=== PATIENT | male | born 1945 | race Caucasian/White ===

== ENCOUNTER 2023-08-10 13:20 | Inpatient (IN) | payer MEDICARE ==
[2023-08-10] MEDS ORDERED: ALBUTEROL NEBULIZED 2.5 MG/3 ML INHALATION STA (14:04)
[2023-08-10] MEDS ORDERED: IPRATROPIUM 0.5 MG/2.5 ML NEBU INHALATION STA (14:04)
[2023-08-10] MEDS ORDERED: methylPREDNISolone SOD SUCCI 125 MG/2 ML VIAL IV STA (14:04)
[2023-08-10] MEDS ORDERED: SODIUM CHLORIDE 0.9% 1,000 ML IV STA (14:04)
--- NOTE | 2023-08-10 14:13 | ED ---
General Adult HPI - General Chief complaint: Weakness Stated complaint: sob lack of sleep Time Seen by Provider: 08/10/23 13:55 Source: patient, RN notes reviewed, old records reviewed Mode of arrival: wheelchair Limitations: no limitations - History of Present Illness Initial comments: This is a 78-year-old male who presents to the emergency department complaining of weakness and difficulty breathing over the last 2 weeks. Patient does have a history of atrial fibrillation leukemia and 1 cardiac stent. Patient did have a history of smoking but hasn't smoked in years. Patient states she's just feeling more more fatigued any slightly very difficult to catch his breath particularly when he is lying flat. Patient states she has not passed had a thoracentesis it was approximately 6-8 months ago. Patient denies any recent fever chills or cough. Patient denies any chest pain. Patient denies any headache patient denies numbness weakness. Patient denies any lightheadedness or dizziness. Patient denies any calf tenderness. Patient denies any swelling to the legs. - Related Data Allergies Allergy/AdvReac Type Severity Reaction Status Date / Time No Known Allergies Allergy Verified 08/10/23 13:52 Review of Systems ROS Statement: Those systems with pertinent positive or pertinent negative responses have been documented in the HPI. ROS Other: All systems not noted in ROS Statement are negative. Past Medical History Past Medical History: Atrial Fibrillation, Cancer, Diabetes Mellitus, Hypertension Additional Past Medical History / Comment(s): leukemia- 2017 History of Any Multi-Drug Resistant Organisms: None Reported Past Surgical History: No Surgical Hx Reported Past Psychological History: No Psychological Hx Reported Smoking Status: Former smoker Past Alcohol Use History: Occasional Past Drug Use History: None Reported General Exam - General Exam Comments Initial Comments: GENERAL: Patient is well-developed and well-nourished. Patient is nontoxic and well- hydrated and is in moderate distress. ENT: Neck is soft and supple. No significant lymphadenopathy is noted. Oropharynx is clear. Moist mucous membranes. Neck has full range of motion without eliciting any pain. EYES: The sclera were anicteric and conjunctiva were pink and moist. Extraocular movements were intact and pupils were equal round and reactive to light. Eyelids were unremarkable. PULMONARY: Diminished breath sounds particularly on the right CARDIOVASCULAR: There is a regular rate and rhythm without any murmurs gallops or rubs. ABDOMEN: Soft and nontender with normal bowel sounds. SKIN: Skin is clear with no lesions or rashes and otherwise unremarkable. NEUROLOGIC: Patient is alert and oriented x3. Cranial nerves II through XII are grossly intact. Motor and sensory are also intact. Normal speech, volume and content. Symmetrical smile. MUSCULOSKELETAL: Normal extremities with adequate strength and full range of motion. No lower extremity swelling or edema. No calf tenderness. LYMPHATICS: No significant lymphadenopathy is noted PSYCHIATRIC: Normal psychiatric evaluation. Limitations: no limitations Course Vital Signs 08/10/23 08/10/23 08/10/23 13:44 14:04 14:13 Temperature 98.4 F Pulse Rate 93 98 94 Pulse Rate [ Professional Housing Consultant ] Respiratory 15 20 Rate Blood Pressure 96/58 100/60 O2 Sat by Pulse 77 L 60 L Oximetry 08/10/23 08/10/23 08/10/23 14:15 14:25 14:28 Temperature Pulse Rate 98 Pulse Rate [ 92 Professional Housing Consultant ] Respiratory 20 20 Rate Blood Pressure 91/62 O2 Sat by Pulse 90 L Oximetry 08/10/23 08/10/23 08/10/23 14:40 15:00 16:00 Temperature Pulse Rate 95 94 98 Pulse Rate [ Professional Housing Consultant ] Respiratory 20 24 Rate Blood Pressure 115/79 115/75 O2 Sat by Pulse 90 L 90 L Oximetry 08/10/23 17:00 Temperature Pulse Rate 110 H Pulse Rate [ Professional Housing Consultant ] Respiratory 20 Rate Blood Pressure 117/83 O2 Sat by Pulse 92 L Oximetry Medical Decision Making - Medical Decision Making EKG is interpreted by myself. EKG shows atrial fibrillation at 93 bpm QRS is 124 QT interval 370 QTC is 422. Patient's EKG shows occasional PVC. Patient's EKG shows no ST segment elevation or depression. Was pt. sent in by a medical professional or institution (, PA, HUMAN RESOURCES ASSISTANT MANAGER, urgent care, hospital, or alf...) When possible be specific @ -No Did you speak to anyone other than the patient for history (EMS, parent, family, police, friend...)? What history was obtained from this source @ -No Did you review nursing and triage notes (agree or disagree)? Why? @ -I reviewed and agree with nursing and triage notes Were old charts reviewed (outside hosp., previous admission, EMS record, old EKG, old radiological studies, urgent care reports/EKG's, alf records)? Report findings @ -No old charts were reviewed Differential Diagnosis (chest pain, altered mental status, abdominal pain women, abdominal pain men, vaginal bleeding, weakness, fever, dyspnea, syncope, headache, dizziness, GI bleed, back pain, seizure, CVA, palpatations, mental health, musculoskeletal)? @ -Differential Dyspnea: Coronary syndrome, arrhythmia, tamponade, asthma, COPD, pulmonary embolism, pneumonia, pneumothorax, pulmonary effusion, anaphylaxis, diabetic ketoacidosis, flailed chest, pulmonary contusion, diaphragmatic rupture, anemia, neuromuscular, this is not meant to be an all-inclusive list. EKG interpreted by me (3pts min.). @ -As above X-rays interpreted by me (1pt min.). @ -Chest x-ray shows right-sided pleural effusion with pulmonary edema CT interpreted by me (1pt min.). @ -CT of the chest shows no PE but does show significant right-sided pleural effusion and a small left-sided pleural fusion as well as pulmonary edema U/S interpreted by me (1pt. min.). @ -None done What testing was considered but not performed or refused? (CT, X-rays, U/S, lab s)? Why? @ -None What meds were considered but not given or refused? Why? @ -None Did you discuss the management of the patient with other professionals (professionals i.e. , PA, HUMAN RESOURCES ASSISTANT MANAGER, lab, RT, psych nurse, social worker aide, cmo & president, teacher, chief science officer, insurance case manager)? Give summary @ -I spoke with the [facility] hospitalist and they agreed to admit the patient Was smoking cessation discussed for >3mins.? @ -No Was critical care preformed (if so, how long)? @ -35 Minutes Were there social determinants of health that impacted care today? How? (Homelessness, low income, unemployed, alcoholism, drug addiction, transportation, low edu. Level, literacy, decrease access to med. care, retirement, rehab)? @ -No Was there de-escalation of care discussed even if they declined (Discuss DNR or withdrawal of care, Hospice)? DNR status @ -No What co-morbidities impacted this encounter? (DM, HTN, Smoking, COPD, CAD, Cancer, CVA, ARF, Chemo, Hep., AIDS, mental health diagnosis, sleep apnea, morbid obesity)? @ -None Was patient admitted / discharged? Hospital course, mention meds given and route, prescriptions, significant lab abnormalities, going to OR and other pertinent info. @ -Patient's x-ray and CAT scan verified that he had a large right-sided pleural effusion probably needs a thoracentesis pulmonary will be consulted. Patient also had pulmonary edema and will be given Lasix and in the emergency department. Undiagnosed new problem with uncertain prognosis? @ -No Drug Therapy requiring intensive monitoring for toxicity (Heparin, Nitro, Insulin, Cardizem)? @ -No Were any procedures done? @ -No Diagnosis/symptom? @ -Pleural effusion Acute, or Chronic, or Acute on Chronic? @ -Acute Uncomplicated (without systemic symptoms) or Complicated (systemic symptoms)? @ -Complicated Side effects of treatment? @ -No Exacerbation, Progression, or Severe Exacerbation? @ -No Poses a threat to life or bodily function? How? (Chest pain, [place], [place], pneumonia, PE, COPD, DKA, ARF, appy, cholecystitis, CVA, Diverticulitis, Homicidal, Suicidal, threat to staff... and all critical care pts) @ -Yes this can cause hypoxia and end organ dysfunction Diagnosis/symptom? @ -Pulmonary edema Acute, or Chronic, or Acute on Chronic? @ -Acute Uncomplicated (without systemic symptoms) or Complicated (systemic symptoms)? @ -Complicated Side effects of treatment? @ -none Exacerbation, Progression, or Severe Exacerbation] @ -no Poses a threat to life or bodily function? @ -Hypoxia and end organ dysfunction - Lab Data Result diagrams: 08/10/23 14:04 08/10/23 14:04 Lab Results 08/10/23 08/10/23 08/10/23 Range/Units 14:04 14:04 14:04 WBC 206.7 H* (3.8-10.6) k/uL RBC 4.46 (4.30-5.90) m/uL Hgb 12.0 L (13.0-17.5) gm/dL Hct 40.1 (39.0-53.0) % MCV 89.9 (80.0-100.0) fL MCH 27.0 (25.0-35.0) pg MCHC 30.0 L (31.0-37.0) g/dL RDW 20.5 H (11.5-15.5) % Plt Count 186 (150-450) k/uL MPV 8.2 Neutrophils % (Manual) 4 % Lymphocytes % (Manual) 93 % Monocytes % (Manual) 3 % Eosinophils % (Manual) 1 % Neutrophils # (Manual) 8.27 H (1.3-7.7) k/uL Lymphocytes # (Manual) 192.23 H (1.0-4.8) k/uL Monocytes # (Manual) 6.20 H (0-1.0) k/uL Eosinophils # (Manual) 2.07 H (0-0.7) k/uL Nucleated RBCs 0 (0-0) /100 WBC Manual Slide Review Performed Hypochromasia Marked Anisocytosis Moderate PT 11.9 (10.0-12.5) sec INR 1.1 (<1.2) APTT 23.5 (22.0-30.0) sec D-Dimer 1.15 H (<0.60) mg/L FEU Sodium 139 (137-145) mmol/L Potassium 5.7 H (3.5-5.1) mmol/L Chloride 99 (98-107) mmol/L Carbon Dioxide 29 (22-30) mmol/L Anion Gap 11 mmol/L BUN 23 H (9-20) mg/dL Creatinine 0.82 (0.66-1.25) mg/dL Est GFR (CKD-EPI)AfAm >90 (>60 ml/min/1.73 sqM) Est GFR (CKD-EPI)NonAf 85 (>60 ml/min/1.73 sqM) Glucose 373 H (74-99) mg/dL Plasma Lactic Acid [place] (0.7-2.0) mmol/L Calcium 9.4 (8.4-10.2) mg/dL Magnesium 1.9 (1.6-2.3) mg/dL Total Bilirubin 0.5 (0.2-1.3) mg/dL AST 23 (17-59) U/L ALT 13 (4-49) U/L Alkaline Phosphatase 141 H (38-126) U/L Troponin I (0.000-0.034) ng/mL NT-Pro-B Natriuret Pep 1650 pg/mL Total Protein 6.2 L (6.3-8.2) g/dL Albumin 4.0 (3.5-5.0) g/dL 01/08/24 01/08/24 Range/Units 14:04 14:04 WBC (3.8-10.6) k/uL RBC (4.30-5.90) m/uL Hgb (13.0-17.5) gm/dL Hct (39.0-53.0) % MCV (80.0-100.0) fL MCH (25.0-35.0) pg MCHC (31.0-37.0) g/dL RDW (11.5-15.5) % Plt Count (150-450) k/uL MPV Neutrophils % (Manual) % Lymphocytes % (Manual) % Monocytes % (Manual) % Eosinophils % (Manual) % Neutrophils # (Manual) (1.3-7.7) k/uL Lymphocytes # (Manual) (1.0-4.8) k/uL Monocytes # (Manual) (0-1.0) k/uL Eosinophils # (Manual) (0-0.7) k/uL Nucleated RBCs (0-0) /100 WBC Manual Slide Review Hypochromasia Anisocytosis PT (10.0-12.5) sec INR (<1.2) APTT (22.0-30.0) sec D-Dimer (<0.60) mg/L FEU Sodium (137-145) mmol/L Potassium (3.5-5.1) mmol/L Chloride (98-107) mmol/L Carbon Dioxide (22-30) mmol/L Anion Gap mmol/L BUN (9-20) mg/dL Creatinine (0.66-1.25) mg/dL Est GFR (CKD-EPI)AfAm (>60 ml/min/1.73 sqM) Est GFR (CKD-EPI)NonAf (>60 ml/min/1.73 sqM) Glucose (74-99) mg/dL Plasma Lactic Acid [place] 1.7 (0.7-2.0) mmol/L Calcium (8.4-10.2) mg/dL Magnesium (1.6-2.3) mg/dL Total Bilirubin (0.2-1.3) mg/dL AST (17-59) U/L ALT (4-49) U/L Alkaline Phosphatase (38-126) U/L Troponin I <0.012 (0.000-0.034) ng/mL NT-Pro-B Natriuret Pep pg/mL Total Protein (6.3-8.2) g/dL Albumin (3.5-5.0) g/dL Critical Care Time Critical Care Time: Yes Total Critical Care Time: 35 Disposition Clinical Impression: Pleural effusion, Pulmonary edema, History of leukemia Disposition: ADMITTED IP TO THIS HOSP Referrals: Nonstaff,Physician [Primary Care Provider] - 1-2 days Time of Disposition: 17:25
[2023-08-10 14:37] LABS: ALT 13 U/L (4-49); AST 23 U/L (17-59); African American GFR (CKD) >90 (>60 ml/min/1.73 sqM); Alkaline Phosphatase 141 U/L (38-126); Anion Gap 11 mmol/L; Blood Urea Nitrogen 23 mg/dL (9-20); Calcium 9.4 mg/dL (8.4-10.2); Carbon Dioxide 29 mmol/L (22-30); Chloride 99 mmol/L (98-107); Glucose 373 mg/dL (74-99); Magnesium 1.9 mg/dL (1.6-2.3); Non-African American GFR(CKD) 85 (>60 ml/min/1.73 sqM); Potassium 5.7 mmol/L (3.5-5.1); Sodium 139 mmol/L (137-145); Total Bilirubin 0.5 mg/dL (0.2-1.3); Total Protein 6.2 g/dL (6.3-8.2)
[2023-08-10 14:39] LABS: Anisocytosis Moderate; HCT 40.1 % (39.0-53.0); Hypochromasia Marked; MCV 89.9 fL (80.0-100.0); Mean Platelet Volume 8.2; Platelet Count 186 k/uL (150-450); RBC 4.46 m/uL (4.30-5.90); RDW 20.5 % (11.5-15.5)
[2023-08-10 14:40] LABS: INR 1.1 (<1.2); Partial Thromboplastin Time 23.5 sec (22.0-30.0); Prothrombin Time 11.9 sec (10.0-12.5)
[2023-08-10 14:45] LABS: NT-Pro-B-Type Natriuretic Pept 1650 pg/mL
[2023-08-10 14:47] LABS: WBC 206.7 k/uL (3.8-10.6)
--- NOTE | 2023-08-10 15:07 | XR ---
EXAMINATION TYPE: XR chest 2V DATE OF EXAM: 08/10/2023 COMPARISON: 06/08/2015 HISTORY: Difficulty breathing TECHNIQUE: 2 view chest FINDINGS: Heart size is normal. Pulmonary vasculature is prominent. Scattered infiltrates are present in the bilateral lung [place]. Moderate right pleural effusion may be present. IMPRESSION: 1. Moderate right pleural effusion. 2. Perihilar infiltrates. Correlate for atelectasis or pneumonia. Follow-up to clearing is oscar balbuena
[2023-08-10 15:26] LABS: Eosinophils # (M) 2.07 k/uL (0-0.7); Lymphocytes # (M) 192.23 k/uL (1.0-4.8); Neutrophils # (M) 8.27 k/uL (1.3-7.7); Neutrophils % (M) 4 %; Nucleated Red Blood Cells 0 /100 WBC (0-0); Total Cells Counted 200
--- NOTE | 2023-08-10 17:17 | CT ---
CT CHEST FOR PULMONARY EMBOLISM. EXAMINATION TYPE: CT chest angio for PE DATE OF EXAM: 08/10/2023 INDICATION: Elevated d-dimer AND SOB CT DLP: 811.7 mGycm, Automated exposure control for dose reduction was used. CONTRAST: Patient injected with 100ML mL of Isovue 300. COMPARISON: TECHNIQUE: CT of the chest is performed on a spiral scan at 2 mm thick sections. Study is performed with intravenous contrast timed for evaluation for pulmonary embolism. This will limit additional po rtions of the evaluation. 3-D MIP images reconstructed by the technologist are reviewed on the compu ter in the coronal and sagittal planes. FINDINGS: No persistent filling defects are evident to suggest an acute pulmonary embolism. No mediastinal or hilar adenopathy enlarged by CT criteria is evident. The ascending aorta diameter at the level of the main pulmonary artery is 4.3 cm. The main pulmonary artery diameter at the bifur cation is 3.4 cm. There is a moderate right pleural effusion. Compressive atelectasis of the right base. Minimal left p leural effusion is present. Limited CT section through the upper abdomen are unremarkable. IMPRESSION: 1. No acute pulmonary embolism. 2. Moderate right and minimal left pleural effusions. 3. Ascending thoracic aortic aneurysm of 4.3 cm
[2023-08-10] MEDS: FUROSEMIDE 10 MG/ML 4 ML VIAL IV SCH (17:35)
[2023-08-10] MEDS ORDERED: DEXTROSE 50% SYRINGE 50 ML IVP PRN ×2 (23:42)
[2023-08-10] MEDS ORDERED: ALBUTEROL NEBULIZED 2.5 MG/3 ML INHALATION PRN (23:45)
[2023-08-10] MEDS ORDERED: carvediloL 6.25 MG TAB PO STA (23:46)
[2023-08-10] MEDS ORDERED: AZITHROMYCIN 500 MG in SODIUM CHLORIDE 0.9% 250 ML IVPB STA (23:51)
[2023-08-11] MEDS ORDERED: LORazepam 2 MG/ML INJ IV STA (03:45)
[2023-08-11 04:08] LABS: ABG Base Excess 2.2 mmol/L; ABG HCO3 28 mmol/L (21-25); ABG PCO2 54 mmHg (35-45); ABG PH 7.33 (7.35-7.45); ABG TCO2 30 mmol/L (19-24); Allen Test Performed? Yes
[2023-08-11 04:17] LABS: ABG PO2 47 mmHg (83-108)
[2023-08-11] MEDS ORDERED: HALOPERIDOL LACTATE 5 MG/ML 1 ML VIAL IM STA (04:24)
[2023-08-11] MEDS: FUROSEMIDE 10 MG/ML 4 ML VIAL IV SCH ×3 (04:44→16:37)
[2023-08-11 06:11] LABS: Glucose,Whole Blood 542 mg/dL (70-110)
[2023-08-11] MEDS: INSULIN ASPART (NovoLOG) 100 UNIT/ML VIAL SQ SCH ×3 (06:14→18:30)
[2023-08-11] MEDS ORDERED: FUROSEMIDE 10 MG/ML 10 ML VIAL IV STA (06:28)
[2023-08-11] MEDS ORDERED: INSULIN ASPART (NovoLOG) 100 UNIT/ML VIAL SQ ONE (06:40)
[2023-08-11] MEDS: DEXMEDETOMIDINE/0.9% NACL(PMX) 400 MCG in EMPTY BAG 1 BAG IV SCH ×4 (06:55→21:54)
--- NOTE | 2023-08-11 07:04 | P.CNPUL ---
History of Present Illness Consult date: 08/11/23 Requesting physician: Shimon Fitzpatrick Reason for consult: dyspnea Chief complaint: Shortness of breath with exertion History of present illness: I am seeing this patient in new consultation today 08/11/2023 in the emergency room, he is currently in room 27. Patient is a 78-year-old white male with past medical history significant for atrial fibrillation, hypertension, diabetes, CLL, and is a former tobacco smoker. His PCP is a Dr. Miles out of [place]. Patient presented to emergency room yesterday afternoon, chiefly for shortness of breath. This is worse on exertion. He's had increased lower extremity swelling and abdominal firmness. Patient admits to persistent ongoing cough, mo stly nonproductive. This is been ongoing since he was treated for infleunza in March at an outside facility. Denies fevers, chest pain, hemoptysis. Chest x- ray shows cardiomegaly, pulmonary vascular congestion, and likely bilateral pleural effusions. Greater on the right. Underlying infectious process is not excluded. D-dimer was elevated at 1.5. Follow-up Chest CTA on arrival was negative for pulmonary embolism. There is moderate right and minimal left pleural effusion. NT proBNP 1650. CBC on arrival: WBC count 206.7, hemoglobin 12, hematocrit 41, platelets 186. CMP sodium 139, potassium 5.7, chloride 99, serum bicarb 29, BUN 23, creatinine 0.82, glucose 373. Troponins less than 0.012. EKG on arrival shows atrial fibrillation with rapid ventricular response, right bundle branch block. No obvious acute ischemic changes. Patient was originally placed on high flow oxygen. ABGs on 10 L high flow cannula pO2 of 47, pCO2 of 54, pH of 7.33. Patient was placed on BiPAP. Patient is currently sitting up in bed, on BiPAP with settings 16/8 and FiO2 100%. He is anxious. He's been given doses of Ativan by the ER physician. I also gave him a one-time dose of Haldol. Despite this, he continues to try and get out of bed and take off the BiPAP. Patient will require transfer to intensive care unit. We'll start this patient on Precedex. Review of Systems REVIEW OF SYSTEMS: CONSTITUTIONAL: Denies any recent significant weight loss or weight gain. EYES: Denies change in vision. EARS, NOSE, MOUTH, THROAT: Denies headaches, denies sore throat. CARDIOVASCULAR: Denies chest pain, palpitations or syncopal episodes. Admits in creased lower extremity swelling. RESPIRATORY: See HPI GASTROINTESTINAL: Denies change in appetite, abdominal pain, nausea and vomiting, or diarrhea GENITOURINARY: Denies hematuria, denies infections. MUSKULOSKELETAL: Denies pain, denies swelling. INTEGUMENTARY: Denies rash, denies eczema. NEUROLOGICAL: Denies recent memory loss, no recent seizure activity. PSYCHIATRIC: Denies anxiety, denies depression. HEMATOLOGIC/LYMPHATIC: Denies anemia, denies enlarged lymph node Past Medical History Past Medical History: Atrial Fibrillation, Cancer, Diabetes Mellitus, Hypertension Additional Past Medical History / Comment(s): leukemia- 2017 History of Any Multi-Drug Resistant Organisms: None Reported Past Surgical History: No Surgical Hx Reported Past Psychological History: No Psychological Hx Reported Smoking Status: Former smoker Past Alcohol Use History: Occasional Past Drug Use History: None Reported Medications and Allergies Home Medications Medication Instructions Recorded Confirmed Type Albuterol Sulfate [Albuterol 2 puff PO RT-Q6H PRN 08/10/23 08/10/23 History Sulfate Hfa] Aspirin EC [Ecotrin Low Dose] 81 mg PO DAILY 08/10/23 08/10/23 History Furosemide [Lasix] 20 mg PO DAILY 08/10/23 08/10/23 History Insulin Regular, Human [NovoLIN R] See Protocol SQ ACHS 08/10/23 08/10/23 History Rivaroxaban [Xarelto] 20 mg PO DIRECTED 08/10/23 08/10/23 History carvediloL [Coreg] 6.25 mg PO BID 08/10/23 08/10/23 History dilTIAZem HCL [Cardizem CD] 120 mg PO DAILY 08/10/23 08/10/23 History lisinopriL [Prinivil] 20 mg PO DAILY 08/10/23 08/10/23 History metFORMIN HCL 1,000 mg PO BID-W/MEALS 08/10/23 08/10/23 History Allergies Allergy/AdvReac Type Severity Reaction Status Date / Time No Known Allergies Allergy Verified 08/10/23 18:10 Physical Exam Vitals: Vital Signs Temp Pulse Pulse Resp BP Pulse Ox FiO2 08/11/23 04:41 100 08/11/23 04:35 120 H 28 H 135/91 93 L 08/11/23 04:32 100 08/11/23 04:25 100 08/11/23 04:18 100 08/11/23 03:00 70 L 08/10/23 23:59 98.1 F 130 H 22 126/79 93 L 08/10/23 22:46 111 H 20 119/79 95 08/10/23 22:40 112 H 20 92 L 08/10/23 21:06 112 H 20 112/85 91 L 08/10/23 20:40 118 H 20 126/91 95 08/10/23 20:25 109 H 21 97 08/10/23 18:00 90 24 124/85 94 L 08/10/23 17:00 110 H 20 117/83 92 L 08/10/23 16:00 98 24 115/75 90 L 08/10/23 15:00 94 20 115/79 90 L 08/10/23 14:40 95 08/10/23 14:28 92 08/10/23 14:25 20 08/10/23 14:15 98 20 91/62 90 L 08/10/23 14:13 94 08/10/23 14:04 98 20 100/60 60 L 08/10/23 13:44 98.4 F 93 15 96/58 77 L Intake and Output 08/10/23 08/10/23 08/11/23 14:59 22:59 06:59 Output Total 350 500 Balance -350 -500 Output: Urine 350 500 Other: # Voids 1 1 Weight 104.326 kg GENERAL EXAM: Alert, 78-year-old white male , anxious and in some moderate amount of distress on BiPAP. He is trying to get out of bed and pull off the BiPAP mask. HEAD: Normocephalic and atraumatic EYES: Normal reaction of pupils, equal size. NOSE: Clear with pink turbinates. THROAT: No erythema or exudates. NECK: No masses, no JVD. CHEST: No chest wall deformity. LUNGS: Equal air entry with diffuse rhonchi and bibasilar dullness. On BiPAP with settings 16/8 and FiO2 100%. Achieving tidal volumes around 600, respiratory rate is in the high 20s.. CVS: S1 and S2 normal with no audible murmur, regular rhythm. No extra heart sounds ABDOMEN: No hepatosplenomegaly, active bowel sounds, no guarding or rigidity. SPINE: No scoliosis or deformity SKIN: No rashes CENTRAL NERVOUS SYSTEM: No focal deficits, tone is normal in all 4 extremities. EXTREMITIES: Moderate bilateral nonpitting lower extremity edema. Legs are wrapped. Patient has venous stasis ulcers. No clubbing, or cyanosis. Peripheral pulses are intact. Results - Laboratory Findings CBC and BMP: 08/10/23 14:04 08/10/23 14:04 ABG ABG pH 7.33 (7.35-7.45) L 08/11/23 04:06 ABG pCO2 54 mmHg (35-45) H 08/11/23 04:06 ABG pO2 47 mmHg (83-108) L* 08/11/23 04:06 ABG O2 Saturation 80.0 % (94-97) L 08/11/23 04:06 PT/INR, D-dimer PT 11.9 sec (10.0-12.5) 08/10/23 14:04 INR 1.1 (<1.2) 08/10/23 14:04 D-Dimer 1.15 mg/L FEU (<0.60) H 08/10/23 14:04 Abnormal lab findings: Abnormal Labs 08/10/23 08/10/23 08/10/23 14:04 14:04 14:04 WBC 206.7 H* Hgb 12.0 L MCHC 30.0 L RDW 20.5 H Neutrophils # (Manual) 8.27 H Lymphocytes # (Manual) 192.23 H Monocytes # (Manual) 6.20 H Eosinophils # (Manual) 2.07 H D-Dimer 1.15 H ABG pH ABG pCO2 ABG pO2 ABG HCO3 ABG Total CO2 ABG O2 Saturation Potassium 5.7 H BUN 23 H Glucose 373 H POC Glucose (mg/dL) Alkaline Phosphatase 141 H Total Protein 6.2 L 08/11/23 08/11/23 04:06 06:10 WBC Hgb MCHC RDW Neutrophils # (Manual) Lymphocytes # (Manual) Monocytes # (Manual) Eosinophils # (Manual) D-Dimer ABG pH 7.33 L ABG pCO2 54 H ABG pO2 47 L* ABG HCO3 28 H ABG Total CO2 30 H ABG O2 Saturation 80.0 L Potassium BUN Glucose POC Glucose (mg/dL) 542 H Alkaline Phosphatase Total Protein - Diagnostic Findings Chest x-ray: image reviewed CT scan - chest: image reviewed Assessment and Plan Assessment: Acute hypoxemic and hypercapnic respiratory failure, currently on BiPAP, likely secondary to CHF exacerbation, unknown type. Underlying pneumonia is not exclud ed. Chest x-ray on arrival shows. Cardiomegaly, pulmonary vascular congestion, and bilateral pleural effusions, right greater than left. Paroxysmal atrial fibrillation with rapid ventricular rate Metabolic encephalopathy, possibly related to hypoxia Elevated d-dimer, chest CTA did not show any pulmonary emboli. Chronic lymphocytic leukemia Diabetes mellitus, type II, insulin-dependent History of hypertension Remote former smoker Plan: Patient's medications, labs and imaging reviewed. Continue BiPAP support with current settings. Patient is anxious and sliding BiPAP. We'll start the patient on Precedex infusion, will require ICU transfer. Continue with IV Lasix 40 mg twice a day. Given additional dose of Lasix 60 mg once now. Obtain echocardiogram. Obtain chest ultrasound markings, for possible thoracentesis. Patient not currently on any anticoagulants. Patient empirically covered with antibiotics including ceftriaxone and azithromycin. Check procalcitonin level. Blood cultures pending. Rule out COVID, Influenza, RSV. Patient will be best monitored in the intensive care unit for now. We will continue to follow, and further recommendations are forthcoming. I have personally seen and examined the patient, performed the documentation and the assessment and plan as written. Number of minutes spent on the visit:20 Time with Patient: Greater than 30
[2023-08-11 07:59] LABS: Glucose,Whole Blood 551 mg/dL (70-110)
--- NOTE | 2023-08-11 08:49 | XR ---
EXAM: XR Chest, 1 View CLINICAL HISTORY: dyspnea TECHNIQUE: Frontal view of the chest. COMPARISON: Chest CT performed 2 hours 17 minutes report this exam. FINDINGS/IMPRESSION: Essentially unchanged study, allowing for differences technique. Please refer to the prior report.
[2023-08-11 09:08] LABS: ABG Base Excess 3.7 mmol/L; ABG HCO3 30 mmol/L (21-25); ABG Oxygen Saturation 93.4 % (94-97); ABG PCO2 62 mmHg (35-45); ABG PH 7.29 (7.35-7.45); ABG PO2 73 mmHg (83-108); ABG TCO2 32 mmol/L (19-24); Allen Test Performed? Yes
[2023-08-11] MEDS: carvediloL 6.25 MG TAB PO SCH ×2 (09:08→19:40)
[2023-08-11] MEDS: lisinopriL 20 MG TAB PO SCH (09:08)
--- NOTE | 2023-08-11 10:12 | US ---
EXAMINATION TYPE: US chest DATE OF EXAM: 08/11/2023 COMPARISON: NONE CLINICAL INDICATION: Male, 78 years old with history of Bilateral pleural effusions; Patient not cons cious at time of exam. TECHNIQUE: Targeted ultrasound of the posterior lower bilateral hemithoraces EXAM MEASUREMENTS: Right Pleural Effusion pocket size: 3.2 cm Right skin surface to fluid distance: 2.0 cm Left Pleural Effusion pocket size: 1.8 cm Left skin surface to fluid distance: 3.6 cm Right side marked for possible thoracentesis outside the dept. Pulmonologists are able to review the images in the patient?s EMR. Right side marked with patient in LPO IMPRESSIONS: 1. Small bilateral pleural effusions.
--- NOTE | 2023-08-11 10:38 | P.HPIM ---
History of Present Illness This is a pleasant 78 years old male with past medical history of Atrial Fibrillation, Diabetes Mellitus, Hypertension, leukemia- 2017 Patient currently on BiPAP, nonverbal very weak and could not provide i nformation so it was obtained from stop her records. Because of feeling very weak and not able to sleep flat to do because of difficulty breathing. On admission he was found to have a respiratory address and hypoxic and tachycardic, currently was placed on BiPAP. BiPAP setting is 16/8 with FiO2 of 100% and has to be placed or strains. Because of her cell phone staff. Further information is limited Labs reviewed showing leukocytosis of 206, hemoglobin 12, platelet count 186 Mainly he has increasing lymphocytes at 192k, BMP and liver enzymes were unremarkable PH is low at 7.3 PCO2 is elevated 54 and pO2 was low 47 ProBNP is mildly elevated 1650 Troponin is negative Chest x-ray showing worsening right lung opacification involving most of the whole right lung CTA of the chest was negative for pulmonary embolism with large right pleural effusion associated with ascending aorta about 4.3 cm EKG showing A. fib with conduction delay/L Duarte versus right bundle branch block Review of Systems ROS unobtainable: due to mental status Past Medical History Past Medical History: Atrial Fibrillation, Cancer, Diabetes Mellitus, Hypertension Additional Past Medical History / Comment(s): leukemia- 2017 History of Any Multi-Drug Resistant Organisms: None Reported Past Surgical History: No Surgical Hx Reported Past Psychological History: No Psychological Hx Reported Smoking Status: Former smoker Past Alcohol Use History: Occasional Past Drug Use History: None Reported Medications and Allergies Home Medications Medication Instructions Recorded Confirmed Type Albuterol Sulfate [Albuterol 2 puff PO RT-Q6H PRN 08/10/23 08/10/23 History Sulfate Hfa] Aspirin EC [Ecotrin Low Dose] 81 mg PO DAILY 08/10/23 08/10/23 History Furosemide [Lasix] 20 mg PO DAILY 08/10/23 08/10/23 History Insulin Regular, Human [NovoLIN R] See Protocol SQ ACHS 08/10/23 08/10/23 History Rivaroxaban [Xarelto] 20 mg PO DIRECTED 08/10/23 08/10/23 History carvediloL [Coreg] 6.25 mg PO BID 08/10/23 08/10/23 History dilTIAZem HCL [Cardizem CD] 120 mg PO DAILY 08/10/23 08/10/23 History lisinopriL [Prinivil] 20 mg PO DAILY 08/10/23 08/10/23 History metFORMIN HCL 1,000 mg PO BID-W/MEALS 08/10/23 08/10/23 History Allergies Allergy/AdvReac Type Severity Reaction Status Date / Time No Known Allergies Allergy Verified 08/10/23 18:10 Physical Exam Vitals: Vital Signs Temp Pulse Pulse Resp BP Pulse Ox FiO2 08/11/23 08:56 93 L 08/11/23 08:55 112 H 24 125/79 89 L 08/11/23 08:50 86 L 08/11/23 08:30 112 H 18 109/90 94 L 08/11/23 07:55 100 08/11/23 07:25 135 H 28 H 131/88 93 L 08/11/23 07:05 126 H 28 H 138/94 88 L 08/11/23 04:41 100 08/11/23 04:35 120 H 28 H 135/91 93 L 08/11/23 04:32 100 08/11/23 04:25 100 08/11/23 04:18 100 08/11/23 03:00 70 L 08/10/23 23:59 98.1 F 130 H 22 126/79 93 L 08/10/23 22:46 111 H 20 119/79 95 08/10/23 22:40 112 H 20 92 L 08/10/23 21:06 112 H 20 112/85 91 L 08/10/23 21:00 128 H 13 126/91 93 L 08/10/23 20:40 118 H 20 126/91 95 08/10/23 20:30 122/90 91 L 08/10/23 20:25 109 H 21 97 08/10/23 20:00 117/85 93 L 08/10/23 19:30 105 H 119/86 93 L 08/10/23 19:00 113 H 124/85 94 L 08/10/23 18:30 113 H 138/70 86 L 08/10/23 18:00 90 24 115/87 89 L 08/10/23 17:30 97 10 L 117/83 94 L 08/10/23 17:00 95 20 115/83 93 L 08/10/23 16:30 103 H 38 H 115/79 87 L 08/10/23 16:00 100 30 H 113/73 88 L 08/10/23 15:30 95 18 117/76 91 L 08/10/23 15:00 92 22 91/62 93 L 08/10/23 14:40 95 08/10/23 14:30 87 26 H 91/62 92 L 08/10/23 14:28 92 08/10/23 14:25 20 08/10/23 14:15 98 20 91/62 90 L 08/10/23 14:13 94 08/10/23 14:04 98 20 100/60 60 L 08/10/23 14:00 64 L 08/10/23 13:44 98.4 F 93 15 96/58 77 L Intake and Output 08/10/23 08/11/23 08/11/23 22:59 06:59 14:59 Intake Total 20.213 Output Total 350 500 600 Balance -350 500 -579.787 Intake: Intake, IV Titration 20.213 Amount Dexmedetomidine/0.9% NaCl 20.213 (Pmx) 400 mcg In Empty Bag 1 bag @ 0.2 MCG/KG/HR 5.216 mls/hr IV .[id number] [facility] Rx#:[id number] Output: Urine 350 500 600 Uretheral ([place]) 600 Other: # Voids 1 1 -GENERAL: The patient is very weak, on BiPAP, could not provide information HEENT: Pupils are round and equally reacting to light. EOMI. No scleral icterus. No conjunctival pallor. Normocephalic, atraumatic. No pharyngeal erythema. No thyromegaly. CARDIOVASCULAR: S1 and S2 present. No murmurs, rubs, or gallops. -PULMONARY: Chest is clear to auscultation, no wheezing , no crackles. Decreased breath sounds on the right side, tachypneic ABDOMEN: Soft, nontender, nondistended, normoactive bowel sounds. No palpable organomegaly. MUSCULOSKELETAL: No joint swelling or deformity. EXTREMITIES: No cyanosis, clubbing, or pedal edema. NEUROLOGICAL: Gross neurological examination did not reveal any focal deficits. SKIN: No rashes. no petechiae. Results CBC & Chem 7: 08/10/23 14:04 08/10/23 14:04 Labs: Abnormal Lab Results - Last 24 Hours (Table) 08/10/23 08/10/23 08/10/23 Range/Units 14:04 14:04 14:04 WBC 206.7 H* (3.8-10.6) k/uL Hgb 12.0 L (13.0-17.5) gm/dL MCHC 30.0 L (31.0-37.0) g/dL RDW 20.5 H (11.5-15.5) % Neutrophils # (Manual) 8.27 H (1.3-7.7) k/uL Lymphocytes # (Manual) 192.23 H (1.0-4.8) k/uL Monocytes # (Manual) 6.20 H (0-1.0) k/uL Eosinophils # (Manual) 2.07 H (0-0.7) k/uL D-Dimer 1.15 H (<0.60) mg/L FEU ABG pH (7.35-7.45) ABG pCO2 (35-45) mmHg ABG pO2 (83-108) mmHg ABG HCO3 (21-25) mmol/L ABG Total CO2 (19-24) mmol/L ABG O2 Saturation (94-97) % Potassium 5.7 H (3.5-5.1) mmol/L BUN 23 H (9-20) mg/dL Glucose 373 H (74-99) mg/dL POC Glucose (mg/dL) (70-110) mg/dL Alkaline Phosphatase 141 H (38-126) U/L Total Protein 6.2 L (6.3-8.2) g/dL 08/11/23 08/11/23 08/11/23 Range/Units 04:06 06:10 07:58 WBC (3.8-10.6) k/uL Hgb (13.0-17.5) gm/dL MCHC (31.0-37.0) g/dL RDW (11.5-15.5) % Neutrophils # (Manual) (1.3-7.7) k/uL Lymphocytes # (Manual) (1.0-4.8) k/uL Monocytes # (Manual) (0-1.0) k/uL Eosinophils # (Manual) (0-0.7) k/uL D-Dimer (<0.60) mg/L FEU ABG pH 7.33 L (7.35-7.45) ABG pCO2 54 H (35-45) mmHg ABG pO2 47 L* (83-108) mmHg ABG HCO3 28 H (21-25) mmol/L ABG Total CO2 30 H (19-24) mmol/L ABG O2 Saturation 80.0 L (94-97) % Potassium (3.5-5.1) mmol/L BUN (9-20) mg/dL Glucose (74-99) mg/dL POC Glucose (mg/dL) 542 H 551 H (70-110) mg/dL Alkaline Phosphatase (38-126) U/L Total Protein (6.3-8.2) g/dL 08/11/23 Range/Units 09:04 WBC (3.8-10.6) k/uL Hgb (13.0-17.5) gm/dL MCHC (31.0-37.0) g/dL RDW (11.5-15.5) % Neutrophils # (Manual) (1.3-7.7) k/uL Lymphocytes # (Manual) (1.0-4.8) k/uL Monocytes # (Manual) (0-1.0) k/uL Eosinophils # (Manual) (0-0.7) k/uL D-Dimer (<0.60) mg/L FEU ABG pH 7.29 L (7.35-7.45) ABG pCO2 62 H (35-45) mmHg ABG pO2 73 L (83-108) mmHg ABG HCO3 30 H (21-25) mmol/L ABG Total CO2 32 H (19-24) mmol/L ABG O2 Saturation 93.4 L (94-97) % Potassium (3.5-5.1) mmol/L BUN (9-20) mg/dL Glucose (74-99) mg/dL POC Glucose (mg/dL) (70-110) mg/dL Alkaline Phosphatase (38-126) U/L Total Protein (6.3-8.2) g/dL Assessment and Plan Assessment: Acute hypoxic hypercapnic respiratory failure requiring BiPAP Worsening severe right pleural effusion with possible atelectasis versus pneumonia Metabolic/toxic encephalopathy Respiratory acidosis secondary to above Severe leukocytosis Coated infection with possible pneumonia Paroxysmal atrial fibrillation, with possible aberrant conduction, with possible right bundle branch block Hypertension Hyperlipidemia History of leukemia in 2017 Plan: Continue with BiPAP Continue with Zithromax and Rocephin Check a pro-calcitonin with inflammatory markers Pulmonary team consult Supervisor [employer] team consult Check echocardiogram Labs and medication were reviewed.. Continue same treatment. Continue with symptomatic treatment. Resume home medication. Monitor labs and vitals. DVT and GI prophylaxis. Further recommendations as per clinical course of the patient DVT prophylaxis: Subcutaneous heparin GI Prophylaxis: Pepcid Prognosis is guarded
[2023-08-11] MEDS ORDERED: NALOXONE 0.4 MG/ML 1 ML VIAL IV PRN (11:52)
[2023-08-11 12:27] LABS: Glucose,Whole Blood 406 mg/dL (70-110)
[2023-08-11 12:44] LABS: Anisocytosis Moderate; HCT 38.5 % (39.0-53.0); HGB 11.2 gm/dL (13.0-17.5); Hypochromasia Marked; MCH 26.5 pg (25.0-35.0); MCV 91.1 fL (80.0-100.0); Macrocytosis Slight; Mean Platelet Volume 7.4; Platelet Count 170 k/uL (150-450); RBC 4.22 m/uL (4.30-5.90); RDW 20.1 % (11.5-15.5)
[2023-08-11 13:14] LABS: WBC 200.2 k/uL (3.8-10.6)
--- NOTE | 2023-08-11 13:39 | P.CONS ---
History of Present Illness - Reason for Consult Consult date: 08/11/23 hx CLL Requesting physician: Thomas Daniels - Chief Complaint SOB, weakness - History of Present Illness Patient is a 78-year-old male with past medical history significant for atrial fibrillation, hypertension, diabetes, and CLL. His primary oncologist is Dr. Zambrano out [facility]. Per discussion with spouse, pt has been in observation for his CLL and has not received any treatment for it in the past. He did receive 2 iron transfusions in the past 2 weeks with his oncologist. is unsure what his WBC is at baseline. Patient presented to emergency room with c/o SOB and weakness. He also c/o increased lower extremity swelling and persisting cough over the last cpl months. Per beside RN, this morning pt became more confused and agitated this morning and was placed on bipap. Chest x-ray revealed moderate right pleural effusion and perihilar infiltrates. CT chest negative for pulmonary embolism. Moderate right and minimal left pleural effusions. Ascending thoracic aortic aneurysm measuring 4.3 cm. Chest ultrasound revealed small bilateral pleural effusions. Pulmonology following. WBC count 206.7, absolute lymphocytes 192. Hemoglobin 12, platelets 186. D dimer elevated 1.15. BNP 1650, given IV lasix. He has been started on precedex and will be transferred to ICU. Review of Systems 10 point ROS is negative except as stated in HPI Past Medical History Past Medical History: Atrial Fibrillation, Cancer, Diabetes Mellitus, Hypertension Additional Past Medical History / Comment(s): leukemia- 2017 History of Any Multi-Drug Resistant Organisms: None Reported Past Surgical History: No Surgical Hx Reported Past Psychological History: No Psychological Hx Reported Smoking Status: Former smoker Past Alcohol Use History: Occasional Past Drug Use History: None Reported Medications and Allergies Home Medications Medication Instructions Recorded Confirmed Type Albuterol Sulfate [Albuterol 2 puff PO RT-Q6H PRN 08/10/23 08/10/23 History Sulfate Hfa] Aspirin EC [Ecotrin Low Dose] 81 mg PO DAILY 08/10/23 08/10/23 History Furosemide [Lasix] 20 mg PO DAILY 08/10/23 08/10/23 History Insulin Regular, Human [NovoLIN R] See Protocol SQ ACHS 08/10/23 08/10/23 History Rivaroxaban [Xarelto] 20 mg PO DIRECTED 08/10/23 08/10/23 History carvediloL [Coreg] 6.25 mg PO BID 08/10/23 08/10/23 History dilTIAZem HCL [Cardizem CD] 120 mg PO DAILY 08/10/23 08/10/23 History lisinopriL [Prinivil] 20 mg PO DAILY 08/10/23 08/10/23 History metFORMIN HCL 1,000 mg PO BID-W/MEALS 08/10/23 08/10/23 History Allergies Allergy/AdvReac Type Severity Reaction Status Date / Time No Known Allergies Allergy Verified 08/10/23 18:10 Physical Exam Vitals: Vital Signs Temp Pulse Pulse Resp BP Pulse Ox FiO2 08/11/23 12:15 100 08/11/23 11:15 93 22 85/62 92 L 08/11/23 11:00 87 22 90/67 88 L 08/11/23 10:45 88 22 107/76 91 L 08/11/23 10:30 92 26 H 94/64 92 L 08/11/23 10:00 93 26 H 92/61 87 L 08/11/23 09:30 92 26 H 91/62 89 L 08/11/23 09:00 101 H 25 H 125/79 94 L 08/11/23 08:56 93 L 08/11/23 08:55 112 H 24 125/79 89 L 08/11/23 08:50 86 L 08/11/23 08:30 112 H 18 109/90 94 L 08/11/23 07:55 100 08/11/23 07:25 135 H 28 H 131/88 93 L 08/11/23 07:05 126 H 28 H 138/94 88 L 08/11/23 04:41 100 08/11/23 04:35 120 H 28 H 135/91 93 L 08/11/23 04:32 100 08/11/23 04:25 100 08/11/23 04:18 100 08/11/23 03:00 70 L 08/10/23 23:59 98.1 F 130 H 22 126/79 93 L 08/10/23 22:46 111 H 20 119/79 95 08/10/23 22:40 112 H 20 92 L 08/10/23 21:06 112 H 20 112/85 91 L 08/10/23 21:00 128 H 13 126/91 93 L 08/10/23 20:40 118 H 20 126/91 95 08/10/23 20:30 122/90 91 L 08/10/23 20:25 109 H 21 97 08/10/23 20:00 117/85 93 L 08/10/23 19:30 105 H 119/86 93 L 08/10/23 19:00 113 H 124/85 94 L 08/10/23 18:30 113 H 138/70 86 L 08/10/23 18:00 90 24 115/87 89 L 08/10/23 17:30 97 10 L 117/83 94 L 08/10/23 17:00 95 20 115/83 93 L 08/10/23 16:30 103 H 38 H 115/79 87 L 08/10/23 16:00 100 30 H 113/73 88 L 08/10/23 15:30 95 18 117/76 91 L 08/10/23 15:00 92 22 91/62 93 L 08/10/23 14:40 95 08/10/23 14:30 87 26 H 91/62 92 L 08/10/23 14:28 92 08/10/23 14:25 20 08/10/23 14:15 98 20 91/62 90 L 08/10/23 14:13 94 08/10/23 14:04 98 20 100/60 60 L 08/10/23 14:00 64 L 08/10/23 13:44 98.4 F 93 15 96/58 77 L Intake and Output 08/10/23 08/11/23 08/11/23 22:59 06:59 14:59 Intake Total 88.763 Output Total 350 500 600 Balance -350 -500 -511.237 Intake: Intake, IV Titration 88.763 Amount Dexmedetomidine/0.9% NaCl 88.763 (Pmx) 400 mcg In Empty Bag 1 bag @ 0.2 MCG/KG/HR 5.216 mls/hr IV .[id number] [facility] Rx#:[id number] Output: Urine 350 500 600 Uretheral ([place]) 600 Other: # Voids 1 1 - Constitutional General appearance: mild distress - Respiratory breathing mildly labored, on bipap - Cardiovascular tachycardic - Integumentary Integumentary: no cyanotic, no jaundiced - Musculoskeletal Musculoskeletal: generalized weakness - Psychiatric sedated Results CBC & Chem 7: 08/11/23 12:28 08/10/23 14:04 Labs: Abnormal Lab Results - Last 24 Hours (Table) 08/10/23 08/10/23 08/10/23 Range/Units 14:04 14:04 14:04 WBC 206.7 H* (3.8-10.6) k/uL Hgb 12.0 L (13.0-17.5) gm/dL MCHC 30.0 L (31.0-37.0) g/dL RDW 20.5 H (11.5-15.5) % Neutrophils # (Manual) 8.27 H (1.3-7.7) k/uL Lymphocytes # (Manual) 192.23 H (1.0-4.8) k/uL Monocytes # (Manual) 6.20 H (0-1.0) k/uL Eosinophils # (Manual) 2.07 H (0-0.7) k/uL D-Dimer 1.15 H (<0.60) mg/L FEU ABG pH (7.35-7.45) ABG pCO2 (35-45) mmHg ABG pO2 (83-108) mmHg ABG HCO3 (21-25) mmol/L ABG Total CO2 (19-24) mmol/L ABG O2 Saturation (94-97) % Potassium 5.7 H (3.5-5.1) mmol/L BUN 23 H (9-20) mg/dL Glucose 373 H (74-99) mg/dL POC Glucose (mg/dL) (70-110) mg/dL Hemoglobin A1c (<=6.0) % Alkaline Phosphatase 141 H (38-126) U/L Total Protein 6.2 L (6.3-8.2) g/dL SARS-CoV-2 (PCR) (Not Detectd) 08/10/23 08/11/23 08/11/23 Range/Units 14:04 04:06 06:10 WBC (3.8-10.6) k/uL Hgb (13.0-17.5) gm/dL MCHC (31.0-37.0) g/dL RDW (11.5-15.5) % Neutrophils # (Manual) (1.3-7.7) k/uL Lymphocytes # (Manual) (1.0-4.8) k/uL Monocytes # (Manual) (0-1.0) k/uL Eosinophils # (Manual) (0-0.7) k/uL D-Dimer (<0.60) mg/L FEU ABG pH 7.33 L (7.35-7.45) ABG pCO2 54 H (35-45) mmHg ABG pO2 47 L* (83-108) mmHg ABG HCO3 28 H (21-25) mmol/L ABG Total CO2 30 H (19-24) mmol/L ABG O2 Saturation 80.0 L (94-97) % Potassium (3.5-5.1) mmol/L BUN (9-20) mg/dL Glucose (74-99) mg/dL POC Glucose (mg/dL) 542 H (70-110) mg/dL Hemoglobin A1c 10.4 H (<=6.0) % Alkaline Phosphatase (38-126) U/L Total Protein (6.3-8.2) g/dL SARS-CoV-2 (PCR) (Not Detectd) 08/11/23 08/11/23 08/11/23 Range/Units 07:58 08:41 09:04 WBC (3.8-10.6) k/uL Hgb (13.0-17.5) gm/dL MCHC (31.0-37.0) g/dL RDW (11.5-15.5) % Neutrophils # (Manual) (1.3-7.7) k/uL Lymphocytes # (Manual) (1.0-4.8) k/uL Monocytes # (Manual) (0-1.0) k/uL Eosinophils # (Manual) (0-0.7) k/uL D-Dimer (<0.60) mg/L FEU ABG pH 7.29 L (7.35-7.45) ABG pCO2 62 H (35-45) mmHg ABG pO2 73 L (83-108) mmHg ABG HCO3 30 H (21-25) mmol/L ABG Total CO2 32 H (19-24) mmol/L ABG O2 Saturation 93.4 L (94-97) % Potassium (3.5-5.1) mmol/L BUN (9-20) mg/dL Glucose (74-99) mg/dL POC Glucose (mg/dL) 551 H (70-110) mg/dL Hemoglobin A1c (<=6.0) % Alkaline Phosphatase (38-126) U/L Total Protein (6.3-8.2) g/dL SARS-CoV-2 (PCR) Detected A (Not Detectd) 08/11/23 Range/Units 12:25 WBC (3.8-10.6) k/uL Hgb (13.0-17.5) gm/dL MCHC (31.0-37.0) g/dL RDW (11.5-15.5) % Neutrophils # (Manual) (1.3-7.7) k/uL Lymphocytes # (Manual) (1.0-4.8) k/uL Monocytes # (Manual) (0-1.0) k/uL Eosinophils # (Manual) (0-0.7) k/uL D-Dimer (<0.60) mg/L FEU ABG pH (7.35-7.45) ABG pCO2 (35-45) mmHg ABG pO2 (83-108) mmHg ABG HCO3 (21-25) mmol/L ABG Total CO2 (19-24) mmol/L ABG O2 Saturation (94-97) % Potassium (3.5-5.1) mmol/L BUN (9-20) mg/dL Glucose (74-99) mg/dL POC Glucose (mg/dL) 406 H (70-110) mg/dL Hemoglobin A1c (<=6.0) % Alkaline Phosphatase (38-126) U/L Total Protein (6.3-8.2) g/dL SARS-CoV-2 (PCR) (Not Detectd) Comments: chest US reviewed Chest x-ray: report reviewed CT scan - chest: report reviewed Assessment and Plan (1) CLL (chronic lymphocytic leukemia) Current Visit: Yes Status: Acute Priority: Medium Code(s): C91.10 - CHRONIC LYMPHOCYTIC LEUK OF B-CELL TYPE NOT ACHIEVE REMIS SNOMED Code(s): 34418558 (2) Pleural effusion Current Visit: Yes Status: Acute Priority: High Code(s): J90 - PLEURAL EFFUSION, NOT ELSEWHERE CLASSIFIED SNOMED Code(s): 15512488 (3) Pulmonary edema Current Visit: Yes Status: Acute Priority: High Code(s): J81.1 - CHRONIC PULMONARY EDEMA SNOMED Code(s): 60641140 Plan: Pulmonary edema/plueral effusions: -Presented with c/o SOB and weakness. He also c/o increased lower extremity swelling and persisting cough over the last cpl months. -Chest x-ray revealed moderate right pleural effusion and perihilar infiltrates. CT chest negative for pulmonary embolism. Moderate right and minimal left pleural effusions. Ascending thoracic aortic aneurysm measuring 4.3 cm. Chest ultrasound revealed small bilateral pleural effusions. -D dimer elevated 1.15. BNP 1650, given IV lasix. He has been started on precedex and will be transferred to ICU. -Pulmonology following CLL: -Per conversation with , has been in observation for CLL and has not recieved systemic treatment in the past. His primary oncologist is Dr. Zambrano out of [place]. He did receive 2 iron transfusions in the past 2 weeks with his oncologist. -WBC count 206.7, absolute lymphocytes 192. Hemoglobin 12, platelets 186. is unsure what his WBC/lymphocytes are at baseline. -Leukostasis with CLL is very rare, and not likely. Unknown WBC baseline, but leukocytosis likely exacerbated by acute condition -Will continue to monitor CBC Dr attests: I have seen and examined pt, performed H&P, developed impression and plan of care. Discussed with dictator. Agree with documentation, dictated as a scribe.
[2023-08-11 13:58] LABS: African American GFR (CKD) >90 (>60 ml/min/1.73 sqM); Anion Gap 10 mmol/L; Blood Urea Nitrogen 33 mg/dL (9-20); C Reactive Protein 1.5 mg/dL (<1.0); Calcium 8.5 mg/dL (8.4-10.2); Carbon Dioxide 30 mmol/L (22-30); Chloride 95 mmol/L (98-107); Glucose 428 mg/dL (74-99); LDH 178 U/L (120-246); Magnesium 2.1 mg/dL (1.6-2.3); Non-African American GFR(CKD) 87 (>60 ml/min/1.73 sqM); Potassium 5.6 mmol/L (3.5-5.1); Sodium 135 mmol/L (137-145)
--- NOTE | 2023-08-11 14:05 | P.CRDCN ---
History of Present Illness Consult date: 08/11/23 Chief complaint: Shortness of breath History of present illness: The patient is a 78-year-old gentleman who we requested to see in the intensive care. The patient currently is on BiPAP and does have significant change in mental status. The history was taken from the chart including the emergency room chart and the consults and history and physical chart as well and the nurse taking care of the patient. The patient does have underlying history consistent of permanent atrial fibrillation on oral anticoagulation as well as hypertension and dyslipidemia and also diabetes and also CLL and also history of smoking. The patient apparently presented to the emergency department with increasing shortness of breath and change in mental status. No indication that the patient was experiencing symptoms of chest pain or chest discomfort. He underwent further evaluation including chest x-ray which showed cardiomegaly and also showed evidence of pulmonary vascular contractions and evidence of pleural effusion. He underwent an EKG which I reviewed with and that showed atrial fibrillation with RBBB but the heart rate overall appeared to be under good control. He underwent also a CTA and that showed no evidence of pulmonary embolism. His NT proBNP came in to be around 1600. WBC was 206. Hemoglobin was around 12 and platelet count was around 186. Sodium 139 and potassium is 5.7 and creatinine 0.82. Troponin was less than 0.012. The patient was placed on BiPAP and he was admitted to the intensive care unit. When he was seen ear lier today he was hemodynamically stable was marginally low blood pressure. He is in atrial fibrillation with overall controlled heart rates. He was started on Lasix IV for heart failure evidence and he is known to have history of heart failure from before and also he was started on antibiotic for possible underlying pneumonia and the chest x-ray was consistent with both. On examination he does have significant change in mental status and he was in mild respiratory distress on BiPAP. The heart examination revealed irregular rhythm with a distant heart sounds and diminished breathing sounds bilaterally on lung examination and the abdomen appeared to be soft and nontender when it was exami lynnette. Also he extremities has mild bilateral edema. He was tested positive for coated as well Assessment Acute hypoxic respiratory failure Possible underlying pneumonia Heart failure of unknown etiology Permanent patient fibrillation with controlled heart rate Chronic lymphocytic leukemia I'll double comorbid conditions COVID-19 infection Plan Continue the current medical regimen Procedure increasing the dose of Lasix or starting the Lasix if the pressure dropped down Obtain an echocardiogram was Doppler Serial cardiac enzymes Follow-up with the patient Past Medical History Past Medical History: Atrial Fibrillation, Cancer, Diabetes Mellitus, Hypert ension Additional Past Medical History / Comment(s): leukemia- 2017 History of Any Multi-Drug Resistant Organisms: None Reported Past Surgical History: No Surgical Hx Reported Past Psychological History: No Psychological Hx Reported Smoking Status: Former smoker Past Alcohol Use History: Occasional Past Drug Use History: None Reported Medications and Allergies Home Medications Medication Instructions Recorded Confirmed Type Albuterol Sulfate [Albuterol 2 puff PO RT-Q6H PRN 08/10/23 08/10/23 History Sulfate Hfa] Aspirin EC [Ecotrin Low Dose] 81 mg PO DAILY 08/10/23 08/10/23 History Furosemide [Lasix] 20 mg PO DAILY 08/10/23 08/10/23 History Insulin Regular, Human [NovoLIN R] See Protocol SQ ACHS 08/10/23 08/10/23 History Rivaroxaban [Xarelto] 20 mg PO DIRECTED 08/10/23 08/10/23 History carvediloL [Coreg] 6.25 mg PO BID 08/10/23 08/10/23 History dilTIAZem HCL [Cardizem CD] 120 mg PO DAILY 08/10/23 08/10/23 History lisinopriL [Prinivil] 20 mg PO DAILY 08/10/23 08/10/23 History metFORMIN HCL 1,000 mg PO BID-W/MEALS 08/10/23 08/10/23 History Allergies Allergy/AdvReac Type Severity Reaction Status Date / Time No Known Allergies Allergy Verified 08/10/23 18:10 Physical Exam Vitals: Vital Signs Temp Pulse Pulse Resp BP Pulse Ox FiO2 08/11/23 12:15 100 08/11/23 11:15 93 22 85/62 92 L 08/11/23 11:00 87 22 90/67 88 L 08/11/23 10:45 88 22 107/76 91 L 08/11/23 10:30 92 26 H 94/64 92 L 08/11/23 10:00 93 26 H 92/61 87 L 08/11/23 09:30 92 26 H 91/62 89 L 08/11/23 09:00 101 H 25 H 125/79 94 L 08/11/23 08:56 93 L 08/11/23 08:55 112 H 24 125/79 89 L 08/11/23 08:50 86 L 08/11/23 08:30 112 H 18 109/90 94 L 08/11/23 07:55 100 08/11/23 07:25 135 H 28 H 131/88 93 L 08/11/23 07:05 126 H 28 H 138/94 88 L 08/11/23 04:41 100 08/11/23 04:35 120 H 28 H 135/91 93 L 08/11/23 04:32 100 08/11/23 04:25 100 08/11/23 04:18 100 08/11/23 03:00 70 L 08/10/23 23:59 98.1 F 130 H 22 126/79 93 L 08/10/23 22:46 111 H 20 119/79 95 08/10/23 22:40 112 H 20 92 L 08/10/23 21:06 112 H 20 112/85 91 L 08/10/23 21:00 128 H 13 126/91 93 L 08/10/23 20:40 118 H 20 126/91 95 08/10/23 20:30 122/90 91 L 08/10/23 20:25 109 H 21 97 08/10/23 20:00 117/85 93 L 08/10/23 19:30 105 H 119/86 93 L 08/10/23 19:00 113 H 124/85 94 L 08/10/23 18:30 113 H 138/70 86 L 08/10/23 18:00 90 24 115/87 89 L 08/10/23 17:30 97 10 L 117/83 94 L 08/10/23 17:00 95 20 115/83 93 L 08/10/23 16:30 103 H 38 H 115/79 87 L 08/10/23 16:00 100 30 H 113/73 88 L 08/10/23 15:30 95 18 117/76 91 L 08/10/23 15:00 92 22 91/62 93 L 08/10/23 14:40 95 08/10/23 14:30 87 26 H 91/62 92 L 08/10/23 14:28 92 08/10/23 14:25 20 08/10/23 14:15 98 20 91/62 90 L 08/10/23 14:13 94 08/10/23 14:04 98 20 100/60 60 L 08/10/23 14:00 64 L Intake and Output 08/10/23 08/11/23 08/11/23 22:59 06:59 14:59 Intake Total 88.763 Output Total 350 500 600 Balance -350 -500 -511.237 Intake: Intake, IV Titration 88.763 Amount Dexmedetomidine/0.9% NaCl 88.763 (Pmx) 400 mcg In Empty Bag 1 bag @ 0.2 MCG/KG/HR 5.216 mls/hr IV .[id number] [facility] Rx#:[id number] Output: Urine 350 500 600 Uretheral ([place]) 600 Other: # Voids 1 1 Results 08/11/23 12:28 08/11/23 12:28 Cardiac Enzymes 08/10/23 08/10/23 08/11/23 Range/Units 14:04 14:04 12:28 AST 23 (17-59) U/L Lactate Dehydrogenase 178 (120-246) U/L Troponin I <0.012 (0.000-0.034) ng/mL Coagulation 08/10/23 Range/Units 14:04 PT 11.9 (10.0-12.5) sec APTT 23.5 (22.0-30.0) sec CBC 08/10/23 08/11/23 Range/Units 14:04 12:28 WBC 206.7 H* 200.2 H* (3.8-10.6) k/uL RBC 4.46 4.22 L (4.30-5.90) m/uL Hgb 12.0 L 11.2 L (13.0-17.5) gm/dL Hct 40.1 38.5 L (39.0-53.0) % Plt Count 186 170 (150-450) k/uL Comprehensive Metabolic Panel 08/10/23 08/11/23 Range/Units 14:04 12:28 Sodium 139 135 L (137-145) mmol/L Potassium 5.7 H 5.6 H (3.5-5.1) mmol/L Chloride 99 95 L (98-107) mmol/L Carbon Dioxide 29 30 (22-30) mmol/L BUN 23 H 33 H (9-20) mg/dL Creatinine 0.82 0.79 (0.66-1.25) mg/dL Glucose 373 H 428 H (74-99) mg/dL Calcium 9.4 8.5 (8.4-10.2) mg/dL AST 23 (17-59) U/L ALT 13 (4-49) U/L Alkaline Phosphatase 141 H (38-126) U/L Total Protein 6.2 L (6.3-8.2) g/dL Albumin 4.0 (3.5-5.0) g/dL Current Medications Generic Name Dose Route Start Last Admin Trade Name Freq PRN Reason Stop Dose Admin Albuterol Sulfate 2.5 mg 08/10/23 23:45 Albuterol Nebulized 2.5 Mg/3 Ml INHALATION RT-QID PRN Shortness Of Breath Or Wheezing Carvedilol 6.25 mg 08/11/23 09:00 08/11/23 09:08 Carvedilol 6.25 Mg Tab PO Not Given BID [facility] Dextrose/Water 25 ml 08/10/23 23:42 Dextrose 50% Syringe 50 Ml IVP PER PROTOCOL PRN Hypoglycemia Protocol Dextrose/Water 50 ml 08/10/23 23:42 Dextrose 50% Syringe 50 Ml IVP PER PROTOCOL PRN Hypoglycemia Protocol Famotidine 20 mg 08/11/23 21:00 Famotidine 20 Mg/2 Ml Vial IV Q12HR [facility] Furosemide 40 mg 08/10/23 17:30 08/11/23 04:44 Furosemide 10 Mg/Ml 4 Ml Vial IV 40 mg Q12H [facility] Administration Heparin Sodium (Porcine) 5,000 unit 08/11/23 21:00 Heparin Sodium,Porcine 5,000 Unit/Ml 1 Ml Vial SQ Q12HR [facility] Azithromycin 500 mg/ Sodium 250 mls @ 250 mls/hr 08/12/23 00:00 Chloride IVPB 08/14/23 00:59 DAILY@0000 [facility] Protocol Ceftriaxone Sodium 2 gm/ 50 mls @ 100 mls/hr 08/12/23 00:00 Sodium Chloride IVPB Q24H [facility] Protocol Dexmedetomidine HCl 400 mcg/ 100 mls @ 5.216 mls/hr 08/11/23 06:30 08/11/23 12:33 IV Solution IV 0.6 mcg/kg/hr .[id number] [facility] 15.649 mls/hr Titration Protocol 0.2 MCG/KG/HR Insulin Aspart 0 unit 08/11/23 07:30 08/11/23 13:31 Insulin Aspart (Novolog) 100 Unit/Ml Vial SQ 12 unit ACHS [facility] Administration Protocol Lisinopril 20 mg 08/11/23 09:00 08/11/23 09:08 Lisinopril 20 Mg Tab PO Not Given DAILY [facility] Naloxone HCl 0.2 mg 08/11/23 11:52 Naloxone 0.4 Mg/Ml 1 Ml Vial IV Q2M PRN Opioid Reversal Pantoprazole Sodium 40 mg 08/12/23 09:00 Pantoprazole 40 Mg/10 Ml Vial IV DAILY [facility] Intake and Output 08/10/23 08/11/23 08/11/23 22:59 06:59 14:59 Intake Total 88.763 Output Total 350 500 600 Balance -350 -500 -511.237 Intake: Intake, IV Titration 88.763 Amount Dexmedetomidine/0.9% NaCl 88.763 (Pmx) 400 mcg In Empty Bag 1 bag @ 0.2 MCG/KG/HR 5.216 mls/hr IV .[id number] [facility] Rx#:[id number] Output: Urine 350 500 600 Uretheral ([place]) 600 Other: # Voids 1 1 08/11/23 12:28 08/11/23 12:28
[2023-08-11 14:33] LABS: Lymphocytes # (M) 182.18 k/uL (1.0-4.8); Monocytes # (M) 6.01 k/uL (0-1.0); Neutrophils # (M) 12.01 k/uL (1.3-7.7); Neutrophils % (M) 6 %; Nucleated Red Blood Cells 0 /100 WBC (0-0); Total Cells Counted 100
--- NOTE | 2023-08-11 16:37 | CA ---
Transthoracic Echo Report Name: Merritt Yee Age: 78 Gender: M : 1945 Exam Date: 08/11/2023 11:40 Exam Location: [facility] Ht (in): 71 Wt (lb): 230 Ordering Physician: Thomas Daniels Attending/Referring Phys: Airplane Refueler Nini Peres RDCS Procedure CPT: Indications: evaluate LV function Cardiac Hx: Technical Quality: Good Contrast 1: Total Dose (mL): Contrast 2: Total Dose (mL): MEASUREMENTS (Male / Female) Normal Values 2D ECHO LV Diastolic Diameter PLAX 5.1 cm 4.2 - 5.9 / 3.9 - 5.3 cm LV Systolic Diameter PLAX 4.1 cm IVS Diastolic Thickness 1.5 cm 0.6 - 1.0 / 0.6 - 0.9 cm LVPW Diastolic Thickness 1.2 cm 0.6 - 1.0 / 0.6 - 0.9 cm LV Relative Wall Thickness 0.5 RV Internal Dim ED PLAX 3.5 cm LA Systolic Diameter LX 4.9 cm 3.0 - 4.0 / 2.7 - 3.8 cm LV Diastolic Volume MOD 4C 148.5 cm??? LV Systolic Volume MOD 4C 72.1 cm??? LV Ejection Fraction MOD 4C 51.4 % LV Cardiac Index MOD 4C 2965.4 cm???/min???m??? LV Diastolic Length 4C 8.8 cm LV Systolic Length 4C 7.3 cm LV Diastolic Volume MOD 2C 171.8 cm??? LV Systolic Volume MOD 2C 103.1 cm??? LV Ejection Fraction MOD 2C 40.0 % LV Cardiac Index MOD 2C 2668.2 cm???/min???m??? LV Diastolic Length 2C 9.5 cm LV Systolic Length 2C 8.3 cm LA Volume 115.6 cm??? 18 - 58 / 22 - 52 cm??? LA Volume Index 49.9 cm???/m??? 16 - 28 cm???/m??? M-MODE Aortic Root Diameter MM 4.0 cm AV Cusp Separation MM 1.8 cm DOPPLER AV Peak Velocity 160.6 cm/s AV Peak Gradient 10.3 mmHg MV Area PHT 3.0 cm??? MV Deceleration Time 189.4 ms TR Peak Velocity 286.2 cm/s TR Peak Gradient 32.8 mmHg Right Ventricular Systolic Press 52.0 mmHg FINDINGS Left Ventricle Left ventricular ejection fraction is estimated at 40-45 %. Left ventricular cavity size normal. Moderately increased septal wall thickness. Right Ventricle Mild right ventricular dilatation. Moderate pulmonary hypertension. Right ventricular systolic pressure estimated at 52 mm hg. Right Atrium Normal right atrial size. Left Atrium Moderately increased left atrial diameter. Severely increased left atrial volume. Moderately increased left atrial area. Mitral Valve Mitral valve thickened. Mild mitral annular calcification. Mild mitral regurgitation. Aortic Valve Trileaflet aortic valve. Aortic valve sclerosis. Tricuspid Valve Structurally normal tricuspid valve. Cdai-kv-ljyrrugp tricuspid regurgitation. Pulmonic Valve Structurally normal pulmonic valve. No pulmonic regurgitation. Pericardium No pericardial effusion. Aorta Moderate aortic dilatation at the level of the sinuses of valsalva 40 mm CONCLUSIONS Mild to moderate LV systolic dysfunction Moderate pulmonary hypertension Left atrial enlargement Mild mitral and jcac-[id number] tricuspid regurgitation Dilated aortic root Previewed by: Dr. Kenneth Duarte MD (Electronically Signed) Final Date: 11 August 2023 16:36
[2023-08-11 18:19] LABS: Glucose,Whole Blood 380 mg/dL (70-110)
[2023-08-11] MEDS: FAMOTIDINE 20 MG/2 ML VIAL IV SCH (19:45)
[2023-08-11] MEDS ORDERED: HEPARIN SODIUM,PORCINE 5,000 UNIT/ML 1 ML VIAL SQ SCH (21:00)
[2023-08-11] MEDS: DEXAMETHASONE SOD PHOSPHATE 10 MG/ML 1 ML VIAL IVP SCH (22:21)
[2023-08-12] MEDS ORDERED: AZITHROMYCIN 500 MG in SODIUM CHLORIDE 0.9% 250 ML IVPB SCH ×2
[2023-08-12] MEDS: INSULIN ASPART (NovoLOG) 100 UNIT/ML VIAL SQ SCH ×3 (01:05→12:17)
[2023-08-12 01:06] LABS: Glucose,Whole Blood 300 mg/dL (70-110)
[2023-08-12] MEDS: DEXMEDETOMIDINE/0.9% NACL(PMX) 400 MCG in EMPTY BAG 1 BAG IV SCH ×5 (01:25→15:12)
[2023-08-12 03:52] LABS: Glucose,Whole Blood 196 mg/dL (70-110)
[2023-08-12 05:32] LABS: Anisocytosis Moderate; HCT 42.7 % (39.0-53.0); HGB 12.6 gm/dL (13.0-17.5); Hypochromasia Marked; MCH 26.6 pg (25.0-35.0); MCHC 29.6 g/dL (31.0-37.0); MCV 89.9 fL (80.0-100.0); Mean Platelet Volume 7.8; Platelet Count 185 k/uL (150-450); RBC 4.75 m/uL (4.30-5.90); RDW 20.1 % (11.5-15.5)
[2023-08-12 05:42] LABS: ALT 12 U/L (4-49); AST 16 U/L (17-59); African American GFR (CKD) >90 (>60 ml/min/1.73 sqM); Albumin 3.6 g/dL (3.5-5.0); Alkaline Phosphatase 112 U/L (38-126); Anion Gap 10 mmol/L; Bilirubin, Delta 0.2 mg/dL (0.0-0.2); Bilirubin,Unconjugated 0.2 mg/dL (0.0-1.1); Blood Urea Nitrogen 36 mg/dL (9-20); Calcium 8.8 mg/dL (8.4-10.2); Carbon Dioxide 34 mmol/L (22-30); Chloride 95 mmol/L (98-107); Glucose 188 mg/dL (74-99); Non-African American GFR(CKD) 85 (>60 ml/min/1.73 sqM); Potassium 5.2 mmol/L (3.5-5.1); Sodium 139 mmol/L (137-145); Total Bilirubin 0.4 mg/dL (0.2-1.3); Total Protein 5.7 g/dL (6.3-8.2)
[2023-08-12] MEDS: FUROSEMIDE 10 MG/ML 4 ML VIAL IV SCH (06:04)
[2023-08-12 06:05] LABS: Glucose,Whole Blood 211 mg/dL (70-110)
[2023-08-12 06:09] LABS: WBC 184.3 k/uL (3.8-10.6)
[2023-08-12 06:21] LABS: Anisocytosis (M) Present; Hypochromasia (M) Present; Lymphocytes # (M) 152.97 k/uL (1.0-4.8); Monocytes # (M) 3.69 k/uL (0-1.0); Neutrophils # (M) 29.49 k/uL (1.3-7.7); Neutrophils % (M) 16 %; Nucleated Red Blood Cells 0 /100 WBC (0-0); Ovalocytes Present; Polychromasia Present; RBC Fragments Present; Total Cells Counted 200
[2023-08-12 06:22] LABS: Mixed Population RBC Present
--- NOTE | 2023-08-12 07:17 | P.PN ---
Subjective Progress Note Date: 08/12/23 Principal diagnosis: Atrial fibrillation The patient is a 78-year-old gentleman who we requested to see in the intensive care. The patient currently is on BiPAP and does have significant change in mental status. The history was taken from the chart including the emergency room chart and the consults and history and physical chart as well and the nurse taking care of the patient. The patient does have underlying history consistent of permanent atrial fibrillation on oral anticoagulation as well as hypertension and dyslipidemia and also diabetes and also CLL and also history of smoking. The patient apparently presented to the emergency department with increasing shortness of breath and change in mental status. No indication that the patient was experiencing symptoms of chest pain or chest discomfort. He underwent further evaluation including chest x-ray which showed cardiomegaly and also showed evidence of pulmonary vascular contractions and evidence of pleural effusion. He underwent an EKG which I reviewed with and that showed atrial fibrillation with RBBB but the heart rate overall appeared to be under good control. He underwent also a CTA and that showed no evidence of pulmonary embolism. His NT proBNP came in to be around 1600. WBC was 206. Hemoglobin was around 12 and platelet count was around 186. Sodium 139 and potassium is 5.7 and creatinine 0.82. Troponin was less than 0.012. The patient was placed on BiPAP and he was admitted to the intensive care unit. When he was seen earlier today he was hemodynamically stable was marginally low blood pressure. He is in atrial fibrillation with overall controlled heart rates. He was started on Lasix IV for heart failure evidence and he is known to have history of heart failure from before and also he was started on antibiotic for possible underlying pneumonia and the chest x-ray was consistent with both. On examination he does have significant change in mental status and he was in mild respiratory distress on BiPAP. The heart examination revealed irregular rhythm with a distant heart sounds and diminished breathing sounds bilaterally on lung examination and the abdomen appeared to be soft and nontender when it was examined. Also he extremities has mild bilateral edema. He was tested positive for COVID as well August [id number] The patient was seen and evaluated this morning. He is sedated at this point because he was agitated. Hemodynamically he is stable. The pressure is normal and he is not on any vasopressors. He is in nature from patient with overall controlled heart rate. He is not on any oral anticoagulation at this point nor any IV anticoagulation with going to start him on Lovenox at this point. He cannot take any oral medication. The chest x-ray continues to showed evidence of bilateral pleural effusion. He is on IV Lasix. The examination is r emarkable for lethargy with overall stable vital signs and diminished breathing sounds bilaterally and irregular rhythm with mild bilateral lower extremity edema. The echo revealed impaired only function was EF between 40-45% Assessment Acute hypoxic respiratory failure Possible underlying pneumonia Heart failure of unknown etiology Permanent patient fibrillation with controlled heart rate Chronic lymphocytic leukemia COVID-19 infection Plan Continue the current medical regimen Continue IV Lasix Continue monitoring her kidney function and electrolytes Start the patient on Lovenox Objective - Vital Signs Vital signs: Vital Signs Temp 97.6 F 08/12/23 04:00 Pulse 92 08/12/23 07:00 Resp 18 08/12/23 07:00 BP 108/84 08/12/23 07:00 Pulse Ox 93 L 08/12/23 07:00 FiO2 70 08/12/23 05:53 Intake & Output 08/11/23 08/12/23 08/12/23 18:59 06:59 18:59 Intake Total 142.752 558.922 Output Total 1370 1580 Balance -1227.248 -1021.078 Weight 100 kg Intake: Intake, IV Titration 142.752 558.922 Amount Azithromycin 500 mg In 250 Sodium Chloride 0.9% 250 ml @ 250 mls/hr IVPB DAILY@0000 [facility] Rx#: [id number] Dexmedetomidine/0.9% NaCl 142.752 258.922 (Pmx) 400 mcg In Empty Bag 1 bag @ 0.2 MCG/KG/HR 5.216 mls/hr IV .[id number] [facility] Rx#:[id number] cefTRIAXone 2 gm In 50 Sodium Chloride 0.9% 50 ml @ 100 mls/hr IVPB ONCE [facility] Rx#:[id number] Output: Urine 1370 1580 Uretheral ([place]) 600 Other: Voiding Method Indwelling Catheter Indwelling Catheter - Labs CBC & Chem 7: 08/12/23 04:27 08/12/23 04:27 Labs: Abnormal Lab Results - Last 24 Hours (Table) 08/10/23 08/11/23 08/11/23 Range/Units 14:04 07:58 08:41 WBC (3.8-10.6) k/uL RBC (4.30-5.90) m/uL Hgb (13.0-17.5) gm/dL Hct (39.0-53.0) % MCHC (31.0-37.0) g/dL RDW (11.5-15.5) % Neutrophils # (Manual) (1.3-7.7) k/uL Lymphocytes # (Manual) (1.0-4.8) k/uL Monocytes # (Manual) (0-1.0) k/uL ABG pH (7.35-7.45) ABG pCO2 (35-45) mmHg ABG pO2 (83-108) mmHg ABG HCO3 (21-25) mmol/L ABG Total CO2 (19-24) mmol/L ABG O2 Saturation (94-97) % Sodium (137-145) mmol/L Potassium (3.5-5.1) mmol/L Chloride (98-107) mmol/L Carbon Dioxide (22-30) mmol/L BUN (9-20) mg/dL Glucose (74-99) mg/dL POC Glucose (mg/dL) 551 H (70-110) mg/dL Hemoglobin A1c 10.4 H (<=6.0) % AST (17-59) U/L C-Reactive Protein (<1.0) mg/dL Total Protein (6.3-8.2) g/dL SARS-CoV-2 (PCR) Detected A (Not Detectd) 08/11/23 08/11/23 08/11/23 Range/Units 09:04 12:25 12:28 WBC (3.8-10.6) k/uL RBC (4.30-5.90) m/uL Hgb (13.0-17.5) gm/dL Hct (39.0-53.0) % MCHC (31.0-37.0) g/dL RDW (11.5-15.5) % Neutrophils # (Manual) (1.3-7.7) k/uL Lymphocytes # (Manual) (1.0-4.8) k/uL Monocytes # (Manual) (0-1.0) k/uL ABG pH 7.29 L (7.35-7.45) ABG pCO2 62 H (35-45) mmHg ABG pO2 73 L (83-108) mmHg ABG HCO3 30 H (21-25) mmol/L ABG Total CO2 32 H (19-24) mmol/L ABG O2 Saturation 93.4 L (94-97) % Sodium 135 L (137-145) mmol/L Potassium 5.6 H (3.5-5.1) mmol/L Chloride 95 L (98-107) mmol/L Carbon Dioxide (22-30) mmol/L BUN 33 H (9-20) mg/dL Glucose 428 H (74-99) mg/dL POC Glucose (mg/dL) 406 H (70-110) mg/dL Hemoglobin A1c (<=6.0) % AST (17-59) U/L C-Reactive Protein 1.5 H (<1.0) mg/dL Total Protein (6.3-8.2) g/dL SARS-CoV-2 (PCR) (Not Detectd) 08/11/23 08/11/23 08/12/23 Range/Units 12:28 18:18 00:37 WBC 200.2 H* (3.8-10.6) k/uL RBC 4.22 L (4.30-5.90) m/uL Hgb 11.2 L (13.0-17.5) gm/dL Hct 38.5 L (39.0-53.0) % MCHC 29.0 L (31.0-37.0) g/dL RDW 20.1 H (11.5-15.5) % Neutrophils # (Manual) 12.01 H (1.3-7.7) k/uL Lymphocytes # (Manual) 182.18 H (1.0-4.8) k/uL Monocytes # (Manual) 6.01 H (0-1.0) k/uL ABG pH (7.35-7.45) ABG pCO2 (35-45) mmHg ABG pO2 (83-108) mmHg ABG HCO3 (21-25) mmol/L ABG Total CO2 (19-24) mmol/L ABG O2 Saturation (94-97) % Sodium (137-145) mmol/L Potassium (3.5-5.1) mmol/L Chloride (98-107) mmol/L Carbon Dioxide (22-30) mmol/L BUN (9-20) mg/dL Glucose (74-99) mg/dL POC Glucose (mg/dL) 380 H 300 H (70-110) mg/dL Hemoglobin A1c (<=6.0) % AST (17-59) U/L C-Reactive Protein (<1.0) mg/dL Total Protein (6.3-8.2) g/dL SARS-CoV-2 (PCR) (Not Detectd) 08/12/23 08/12/23 08/12/23 Range/Units 03:48 04:27 04:27 WBC 184.3 H* (3.8-10.6) k/uL RBC (4.30-5.90) m/uL Hgb 12.6 L (13.0-17.5) gm/dL Hct (39.0-53.0) % MCHC 29.6 L (31.0-37.0) g/dL RDW 20.1 H (11.5-15.5) % Neutrophils # (Manual) 29.49 H (1.3-7.7) k/uL Lymphocytes # (Manual) 152.97 H (1.0-4.8) k/uL Monocytes # (Manual) 3.69 H (0-1.0) k/uL ABG pH (7.35-7.45) ABG pCO2 (35-45) mmHg ABG pO2 (83-108) mmHg ABG HCO3 (21-25) mmol/L ABG Total CO2 (19-24) mmol/L ABG O2 Saturation (94-97) % Sodium (137-145) mmol/L Potassium 5.2 H (3.5-5.1) mmol/L Chloride 95 L (98-107) mmol/L Carbon Dioxide 34 H (22-30) mmol/L BUN 36 H (9-20) mg/dL Glucose 188 H (74-99) mg/dL POC Glucose (mg/dL) 196 H (70-110) mg/dL Hemoglobin A1c (<=6.0) % AST 16 L (17-59) U/L C-Reactive Protein (<1.0) mg/dL Total Protein 5.7 L (6.3-8.2) g/dL SARS-CoV-2 (PCR) (Not Detectd) 08/12/23 Range/Units 06:04 WBC (3.8-10.6) k/uL RBC (4.30-5.90) m/uL Hgb (13.0-17.5) gm/dL Hct (39.0-53.0) % MCHC (31.0-37.0) g/dL RDW (11.5-15.5) % Neutrophils # (Manual) (1.3-7.7) k/uL Lymphocytes # (Manual) (1.0-4.8) k/uL Monocytes # (Manual) (0-1.0) k/uL ABG pH (7.35-7.45) ABG pCO2 (35-45) mmHg ABG pO2 (83-108) mmHg ABG HCO3 (21-25) mmol/L ABG Total CO2 (19-24) mmol/L ABG O2 Saturation (94-97) % Sodium (137-145) mmol/L Potassium (3.5-5.1) mmol/L Chloride (98-107) mmol/L Carbon Dioxide (22-30) mmol/L BUN (9-20) mg/dL Glucose (74-99) mg/dL POC Glucose (mg/dL) 211 H (70-110) mg/dL Hemoglobin A1c (<=6.0) % AST (17-59) U/L C-Reactive Protein (<1.0) mg/dL Total Protein (6.3-8.2) g/dL SARS-CoV-2 (PCR) (Not Detectd) Microbiology - Last 24 Hours (Table) 08/10/23 14:04 Blood Culture - Preliminary Blood
[2023-08-12] MEDS: lisinopriL 20 MG TAB PO SCH (08:14)
[2023-08-12] MEDS: carvediloL 6.25 MG TAB PO SCH (08:14)
[2023-08-12] MEDS: DEXAMETHASONE SOD PHOSPHATE 10 MG/ML 1 ML VIAL IVP SCH (08:19)
[2023-08-12] MEDS: FAMOTIDINE 20 MG/2 ML VIAL IV SCH (08:19)
[2023-08-12] MEDS: ALBUTEROL HFA INHALER INHALATION PRN ×2 (08:31→11:57)
[2023-08-12] MEDS ORDERED: ENOXAPARIN 100 MG/ML SYRINGE SQ SCH (09:00)
[2023-08-12] MEDS ORDERED: PANTOPRAZOLE 40 MG/10 ML VIAL IV SCH (09:00)
--- NOTE | 2023-08-12 09:03 | XR ---
EXAMINATION TYPE: XR chest 1V DATE OF EXAM: 08/12/2023 COMPARISON: 08/11/2023 INDICATION: Short of breath TECHNIQUE: Single frontal view of the chest is obtained. FINDINGS: The heart size is normal. The pulmonary vasculature is normal. Bibasilar infiltrates are present. Small effusions may be present. Right upper lung field opacity has improved over the interval. IMPRESSION: 1. Bibasilar infiltrates and small pleural effusions improving from comparison
--- NOTE | 2023-08-12 12:02 | P.PN ---
Subjective Progress Note Date: 08/12/23 I am seeing this patient in new consultation today 08/11/2023 in the emergency room, he is currently in room 27. Patient is a 78-year-old white male with past medical history significant for atrial fibrillation, hypertension, diabetes, CLL, and is a former tobacco smoker. His PCP is a Dr. Miles out of [place]. Patient presented to emergency room yesterday afternoon, chiefly for shortness of breath. This is worse on exertion. He's had increased lower extremity swelling and abdominal firmness. Patient admits to persistent ongoing cough, mostly nonproductive. This is been ongoing since he was treated for infleunza in March at an outside facility. Denies fevers, chest pain, hemoptysis. Chest x-ray shows cardiomegaly, pulmonary vascular congestion, and likely bilateral pleural effusions. Greater on the right. Underlying infectious process is not excluded. D-dimer was elevated at 1.5. Follow-up Chest CTA on arrival was negative for pulmonary embolism. There is moderate right and minimal left pleural effusion. NT proBNP 1650. CBC on arrival: WBC count 206.7, hemoglobin 12, hematocrit 41, platelets 186. CMP sodium 139, potassium 5.7, chloride 99, serum bicarb 29, BUN 23, creatinine 0.82, glucose 373. Troponins less than 0.012. EKG on arrival shows atrial fibrillation with rapid ventricular response, right bundle branch block. No obvious acute ischemic changes. Patient was originally placed on high flow oxygen. ABGs on 10 L high flow cannula pO2 of 47, pCO2 of 54, pH of 7.33. Patient was placed on BiPAP. Patient is currently sitting up in bed, on BiPAP with settings 16/8 and FiO2 100%. He is anxious. He's been given doses of Ativan by the ER physician. I also gave him a one-time dose of Haldol. Despite this, he continues to try and get out of bed and take off the BiPAP. Patient will require transfer to intensive care unit. We'll start this patient on Precedex. The patient is seen today 08/12/2023 in follow-up in the intensive care unit. He is currently resting in bed. He has had periods of agitation and restlessness. He is currently on Precedex at 0.9 mcg/kg per hour. He remains on BiPAP 16/8 and 70% FiO2. He remains on Lasix 40 mg IV every 12 hours. Currently in a -2.2 L balance. His pro calcitonin was 0.05. Antibiotics will be discontinued. White count 184. Hemoglobin 12.6. Platelets 185. Sodium 139. Potassium 5.2. Bicarb 34. BUN 36. Creatinine 0.84. Glucose 188. He remains on Decadron. Therapeutic Lovenox. Objective - Vital Signs Vital signs: Vital Signs Temp 96.6 F L 08/12/23 08:00 Pulse 106 H 08/12/23 11:00 Resp 20 08/12/23 11:00 BP 109/80 08/12/23 11:00 Pulse Ox 94 L 08/12/23 11:00 FiO2 70 08/12/23 08:30 Intake & Output 08/11/23 08/12/23 08/12/23 18:59 06:59 18:59 Intake Total 142.752 558.922 148.364 Output Total 1370 1580 760 Balance -1227.248 -1021.078 -611.636 Weight 100 kg Intake: Intake, IV Titration 142.752 558.922 148.364 Amount Azithromycin 500 mg In 250 Sodium Chloride 0.9% 250 ml @ 250 mls/hr IVPB DAILY@0000 [facility] Rx#: [id number] Dexmedetomidine/0.9% NaCl 142.752 258.922 148.364 (Pmx) 400 mcg In Empty Bag 1 bag @ 0.2 MCG/KG/HR 5.216 mls/hr IV .[id number] [facility] Rx#:[id number] cefTRIAXone 2 gm In 50 Sodium Chloride 0.9% 50 ml @ 100 mls/hr IVPB ONCE [facility] Rx#:[id number] Output: Urine 1370 1580 760 Uretheral ([place]) 600 Other: Voiding Method Indwelling Catheter Indwelling Catheter Indwelling Catheter - Exam GENERAL EXAM: Arousable, 78-year-old male, requiring Precedex to keep calm and on the BiPAP 16/8 and 70% FiO2. HEAD: Normocephalic and atraumatic EYES: Normal reaction of pupils, equal size. NOSE: Clear with pink turbinates. THROAT: No erythema or exudates. NECK: No masses, no JVD. CHEST: No chest wall deformity. LUNGS: Equal air entry with diffuse rhonchi and bibasilar dullness. CVS: S1 and S2 normal with no audible murmur, regular rhythm. No extra heart sounds ABDOMEN: No hepatosplenomegaly, active bowel sounds, no guarding or rigidity. SPINE: No scoliosis or deformity SKIN: No rashes CENTRAL NERVOUS SYSTEM: No focal deficits, tone is normal in all 4 extremities. EXTREMITIES: Moderate bilateral nonpitting lower extremity edema. Legs are wrapped. Patient has venous stasis ulcers. Peripheral pulses are intact. - Labs CBC & Chem 7: 08/12/23 04:27 08/12/23 04:27 Labs: Abnormal Lab Results - Last 24 Hours (Table) 08/11/23 08/11/23 08/11/23 Range/Units 12:25 12:28 12:28 WBC 200.2 H* (3.8-10.6) k/uL RBC 4.22 L (4.30-5.90) m/uL Hgb 11.2 L (13.0-17.5) gm/dL Hct 38.5 L (39.0-53.0) % MCHC 29.0 L (31.0-37.0) g/dL RDW 20.1 H (11.5-15.5) % Neutrophils # (Manual) 12.01 H (1.3-7.7) k/uL Lymphocytes # (Manual) 182.18 H (1.0-4.8) k/uL Monocytes # (Manual) 6.01 H (0-1.0) k/uL Sodium 135 L (137-145) mmol/L Potassium 5.6 H (3.5-5.1) mmol/L Chloride 95 L (98-107) mmol/L Carbon Dioxide (22-30) mmol/L BUN 33 H (9-20) mg/dL Glucose 428 H (74-99) mg/dL POC Glucose (mg/dL) 406 H (70-110) mg/dL AST (17-59) U/L C-Reactive Protein 1.5 H (<1.0) mg/dL Total Protein (6.3-8.2) g/dL 08/11/23 08/12/23 08/12/23 Range/Units 18:18 00:37 03:48 WBC (3.8-10.6) k/uL RBC (4.30-5.90) m/uL Hgb (13.0-17.5) gm/dL Hct (39.0-53.0) % MCHC (31.0-37.0) g/dL RDW (11.5-15.5) % Neutrophils # (Manual) (1.3-7.7) k/uL Lymphocytes # (Manual) (1.0-4.8) k/uL Monocytes # (Manual) (0-1.0) k/uL Sodium (137-145) mmol/L Potassium (3.5-5.1) mmol/L Chloride (98-107) mmol/L Carbon Dioxide (22-30) mmol/L BUN (9-20) mg/dL Glucose (74-99) mg/dL POC Glucose (mg/dL) 380 H 300 H 196 H (70-110) mg/dL AST (17-59) U/L C-Reactive Protein (<1.0) mg/dL Total Protein (6.3-8.2) g/dL 08/12/23 08/12/23 08/12/23 Range/Units 04:27 04:27 06:04 WBC 184.3 H* (3.8-10.6) k/uL RBC (4.30-5.90) m/uL Hgb 12.6 L (13.0-17.5) gm/dL Hct (39.0-53.0) % MCHC 29.6 L (31.0-37.0) g/dL RDW 20.1 H (11.5-15.5) % Neutrophils # (Manual) 29.49 H (1.3-7.7) k/uL Lymphocytes # (Manual) 152.97 H (1.0-4.8) k/uL Monocytes # (Manual) 3.69 H (0-1.0) k/uL Sodium (137-145) mmol/L Potassium 5.2 H (3.5-5.1) mmol/L Chloride 95 L (98-107) mmol/L Carbon Dioxide 34 H (22-30) mmol/L BUN 36 H (9-20) mg/dL Glucose 188 H (74-99) mg/dL POC Glucose (mg/dL) 211 H (70-110) mg/dL AST 16 L (17-59) U/L C-Reactive Protein (<1.0) mg/dL Total Protein 5.7 L (6.3-8.2) g/dL Microbiology - Last 24 Hours (Table) 08/10/23 14:04 Blood Culture - Preliminary Blood Assessment and Plan Assessment: Acute hypoxemic and hypercapnic respiratory failure, currently on BiPAP, likely secondary to CHF exacerbation, unknown type. Underlying pneumonia is not excluded. Chest x-ray on arrival shows. Cardiomegaly, pulmonary vascular congestion, and bilateral pleural effusions, right greater than left. Paroxysmal atrial fibrillation with rapid ventricular rate Metabolic encephalopathy, possibly related to hypoxia Elevated d-dimer, chest CTA did not show any pulmonary emboli. Chronic lymphocytic leukemia Diabetes mellitus, type II, insulin-dependent History of hypertension Remote former smoker Plan: The patient was seen and evaluated Chest x-ray, labs and medications reviewed Procalcitonin within normal limits Antibiotics discontinued Titrate the Precedex as needed Continue IV diuretics Overall prognosis remains poor Family is considering hospice DO NOT RESUSCITATE/DO NOT INTUBATE CODE STATUS I have personally seen and examined the patient, performed the documentation and the assessment and plan as written. Number of minutes spent on the visit: 10.
[2023-08-12 12:14] LABS: Glucose,Whole Blood 292 mg/dL (70-110)
[2023-08-12 12:39] VITALS: TEMP 96.6
--- NOTE | 2023-08-12 14:47 | P.PN ---
Subjective Progress Note Date: 08/12/23 This is a pleasant 78 years old male with past medical history of Atrial Fibrillation, Diabetes Mellitus, Hypertension, leukemia- 2017 Patient currently on BiPAP, nonverbal very weak and could not provide information so it was obtained from stop her records. Because of feeling very weak and not able to sleep flat to do because of difficulty breathing. On admission he was found to have a respiratory address and hypoxic and tachycardic, currently was placed on BiPAP. BiPAP setting is 16/8 with FiO2 of 100% and has to be placed or strains. Because of her cell phone staff. Further information is limited Labs reviewed showing leukocytosis of 206, hemoglobin 12, platelet count 186 Mainly he has increasing lymphocytes at 192k, BMP and liver enzymes were unremarkable PH is low at 7.3 PCO2 is elevated 54 and pO2 was low 47 ProBNP is mildly elevated 1650 Troponin is negative Chest x-ray showing worsening right lung opacification involving most of the whole right lung CTA of the chest was negative for pulmonary embolism with large right pleural effusion associated with ascending aorta about 4.3 cm EKG showing A. fib with conduction delay/L Duarte versus right bundle branch block 08/12. Patient seen and examined. Continues to be on BiPAP. Family at the bedside. Discussed with detailed with them the patient's poor prognosis, family would like to transition to hospice once patient's other son comes up. REVIEW OF SYSTEMS: Cannot be obtained as patient is very confused and agitated PHYSICAL EXAMINATION: GENERAL: The patient is confused and agitated, ill-looking currently on BiPAP HEENT: Pupils are round and equally reacting to light. EOMI. No scleral icterus. No conjunctival pallor. Normocephalic, atraumatic. No pharyngeal erythema. No thyromegaly. CARDIOVASCULAR: S1 and S2 present. No murmurs, rubs, or gallops. PULMONARY: Diminished breath sounds at the bases bilaterally ABDOMEN: Soft, nontender, nondistended, normoactive bowel sounds. No palpable organomegaly. MUSCULOSKELETAL: No joint swelling or deformity. EXTREMITIES: No cyanosis, clubbing, or pedal edema. NEUROLOGICAL: Confused, agitated SKIN: No rashes. Assessment and plan Acute hypoxic hypercapnic respiratory failure requiring BiPAP Worsening severe right pleural effusion with possible atelectasis versus pneumonia Metabolic/toxic encephalopathy Respiratory acidosis secondary to above Severe leukocytosis covid 19infection with possible pneumonia Paroxysmal atrial fibrillation, with possible aberrant conduction, with possible right bundle branch block Hypertension Hyperlipidemia History of leukemia in 2017 Plan: Monitor vital signs Monitor CBC Monitor CMP Continue with BiPAP Aggressive bronchopulmonary hygiene Continue breathing treatments Continue with Zithromax and Rocephin Strict I's and O's, daily weights, continue IV Lasix Continue Precedex drip ICU following Cardiology following Discussed with family in detail, they would like to pursue hospice, currently waiting on one son show up once he comes up, they will proceed with transition to hospice Labs and medication were reviewed.. Continue same treatment. Continue with symptomatic treatment. Resume home medication. Monitor labs and vitals. DVT and GI prophylaxis. Further recommendations as per clinical course of the randi brock Dictation was produced using [employer] dictation software. please excuse any grammatical, word or spelling errors. Objective - Vital Signs Vital signs: Vital Signs Temp 96.6 F L 08/12/23 08:00 Pulse 103 H 08/12/23 10:00 Resp 23 08/12/23 10:00 BP 107/84 08/12/23 10:00 Pulse Ox 94 L 08/12/23 10:00 FiO2 70 08/12/23 08:30 Intake & Output 08/11/23 08/12/23 08/12/23 18:59 06:59 18:59 Intake Total 142.752 558.922 132.062 Output Total 1370 1580 760 Balance -1227.248 -1021.078 -627.938 Weight 100 kg Intake: Intake, IV Titration 142.752 558.922 132.062 Amount Azithromycin 500 mg In 250 Sodium Chloride 0.9% 250 ml @ 250 mls/hr IVPB DAILY@0000 [facility] Rx#: [id number] Dexmedetomidine/0.9% NaCl 142.752 258.922 132.062 (Pmx) 400 mcg In Empty Bag 1 bag @ 0.2 MCG/KG/HR 5.216 mls/hr IV .[id number] [facility] Rx#:[id number] cefTRIAXone 2 gm In 50 Sodium Chloride 0.9% 50 ml @ 100 mls/hr IVPB ONCE [facility] Rx#:[id number] Output: Urine 1370 1580 760 Uretheral ([place]) 600 Other: Voiding Method Indwelling Catheter Indwelling Catheter - Labs CBC & Chem 7: 08/12/23 04:27 08/12/23 04:27 Labs: Abnormal Lab Results - Last 24 Hours (Table) 08/10/23 08/11/23 08/11/23 Range/Units 14:04 12:25 12:28 WBC (3.8-10.6) k/uL RBC (4.30-5.90) m/uL Hgb (13.0-17.5) gm/dL Hct (39.0-53.0) % MCHC (31.0-37.0) g/dL RDW (11.5-15.5) % Neutrophils # (Manual) (1.3-7.7) k/uL Lymphocytes # (Manual) (1.0-4.8) k/uL Monocytes # (Manual) (0-1.0) k/uL Sodium 135 L (137-145) mmol/L Potassium 5.6 H (3.5-5.1) mmol/L Chloride 95 L (98-107) mmol/L Carbon Dioxide (22-30) mmol/L BUN 33 H (9-20) mg/dL Glucose 428 H (74-99) mg/dL POC Glucose (mg/dL) 406 H (70-110) mg/dL Hemoglobin A1c 10.4 H (<=6.0) % AST (17-59) U/L C-Reactive Protein 1.5 H (<1.0) mg/dL Total Protein (6.3-8.2) g/dL 08/11/23 08/11/23 08/12/23 Range/Units 12:28 18:18 00:37 WBC 200.2 H* (3.8-10.6) k/uL RBC 4.22 L (4.30-5.90) m/uL Hgb 11.2 L (13.0-17.5) gm/dL Hct 38.5 L (39.0-53.0) % MCHC 29.0 L (31.0-37.0) g/dL RDW 20.1 H (11.5-15.5) % Neutrophils # (Manual) 12.01 H (1.3-7.7) k/uL Lymphocytes # (Manual) 182.18 H (1.0-4.8) k/uL Monocytes # (Manual) 6.01 H (0-1.0) k/uL Sodium (137-145) mmol/L Potassium (3.5-5.1) mmol/L Chloride (98-107) mmol/L Carbon Dioxide (22-30) mmol/L BUN (9-20) mg/dL Glucose (74-99) mg/dL POC Glucose (mg/dL) 380 H 300 H (70-110) mg/dL Hemoglobin A1c (<=6.0) % AST (17-59) U/L C-Reactive Protein (<1.0) mg/dL Total Protein (6.3-8.2) g/dL 08/12/23 08/12/23 08/12/23 Range/Units 03:48 04:27 04:27 WBC 184.3 H* (3.8-10.6) k/uL RBC (4.30-5.90) m/uL Hgb 12.6 L (13.0-17.5) gm/dL Hct (39.0-53.0) % MCHC 29.6 L (31.0-37.0) g/dL RDW 20.1 H (11.5-15.5) % Neutrophils # (Manual) 29.49 H (1.3-7.7) k/uL Lymphocytes # (Manual) 152.97 H (1.0-4.8) k/uL Monocytes # (Manual) 3.69 H (0-1.0) k/uL Sodium (137-145) mmol/L Potassium 5.2 H (3.5-5.1) mmol/L Chloride 95 L (98-107) mmol/L Carbon Dioxide 34 H (22-30) mmol/L BUN 36 H (9-20) mg/dL Glucose 188 H (74-99) mg/dL POC Glucose (mg/dL) 196 H (70-110) mg/dL Hemoglobin A1c (<=6.0) % AST 16 L (17-59) U/L C-Reactive Protein (<1.0) mg/dL Total Protein 5.7 L (6.3-8.2) g/dL 08/12/23 Range/Units 06:04 WBC (3.8-10.6) k/uL RBC (4.30-5.90) m/uL Hgb (13.0-17.5) gm/dL Hct (39.0-53.0) % MCHC (31.0-37.0) g/dL RDW (11.5-15.5) % Neutrophils # (Manual) (1.3-7.7) k/uL Lymphocytes # (Manual) (1.0-4.8) k/uL Monocytes # (Manual) (0-1.0) k/uL Sodium (137-145) mmol/L Potassium (3.5-5.1) mmol/L Chloride (98-107) mmol/L Carbon Dioxide (22-30) mmol/L BUN (9-20) mg/dL Glucose (74-99) mg/dL POC Glucose (mg/dL) 211 H (70-110) mg/dL Hemoglobin A1c (<=6.0) % AST (17-59) U/L C-Reactive Protein (<1.0) mg/dL Total Protein (6.3-8.2) g/dL Microbiology - Last 24 Hours (Table) 08/10/23 14:04 Blood Culture - Preliminary Blood
[2023-08-12 15:03] VITALS: BMI 29.3
[2023-08-12 15:27] VITALS: BP 107/78; PULSE 107; RESP 20
--- NOTE | 2023-08-14 17:13 | CDI ---
Your patient has the documented diagnosis of unspecified CHF per your 08/11 Consultation. Additional information regarding the type of CHF is requested. Per the pulmonology consult note the patient has acute hypoxemic and hypercapnic respiratory failure, likely secondary to CHF exacerbation, unknown type. History/Risk Factors: Patient is known to have a history of heart failure. Patient also known to have permanent atrial fibrillation. Clinical Indicators: PH 7.3, PCO2 54, pO2 47 BNP: 1650 Echocardiogram Results: EF of 40-45% Chest X Ray: Cardiomegaly, pulmonary vascular congestion and bilateral pleural effusion. Treatment: BiPAP and IV Lasix In your professional opinion, can you please clarify the type of CHF if known? [ ] Acute Systolic Heart Failure (reduced EF) [ ] Chronic Systolic Heart Failure (reduced EF) [ ] Acute on Chronic Systolic Heart Failure (reduced EF) [ ] Acute Diastolic Heart Failure (preserved EF) [ ] Chronic Diastolic Heart Failure (preserved EF) [ ] Acute on Chronic Diastolic Heart Failure (preserved EF) [ ] Acute Systolic & Diastolic Heart Failure [ ] Chronic Systolic & Diastolic Heart Failure [ ] Acute on Chronic Heart Failure Systolic & Diastolic Heart Failure [ ] Other, please specify [ ] Unable to determine MTDD
--- NOTE | 2023-08-23 09:55 | P.DS ---
Providers Date of admission: 08/10/23 17:26 Expected date of discharge: 08/12/23 Attending physician: Glory Hayward Consults: 08/10/23 17:25 Consult Physician Routine Consulting Provider: [facility] Consult Reason/Comments: Pulmonary edema Do you want consulting provider notified?: Yes Consult Physician Routine Consulting Provider: Grady Jimenez Consult Reason/Comments: Pleural effusion Do you want consulting provider notified?: Yes 08/11/23 06:46 Consult Physician Routine Consulting Provider: Alberto Greer Consult Reason/Comments: Leukemia Do you want consulting provider notified?: Yes Primary care physician: Physician Nonstaff Hospital Course: Discharge diagnoses; Acute hypoxic hypercapnic respiratory failure requiring BiPAP Worsening severe right pleural effusion with possible atelectasis versus pneumonia Metabolic/toxic encephalopathy Respiratory acidosis secondary to above Severe leukocytosis covid 19infection with possible pneumonia Paroxysmal atrial fibrillation, with possible aberrant conduction, with possible right bundle branch block Hypertension Hyperlipidemia History of leukemia in 2017 Hospital course; This is a pleasant 78 years old male with past medical history of Atrial Fibrillation, Diabetes Mellitus, Hypertension, leukemia- 2017 Patient currently on BiPAP, nonverbal very weak and could not provide information so it was obtained from stop her records. Because of feeling very weak and not able to sleep flat to do because of difficulty breathing. On admission he was found to have a respiratory address and hypoxic and tachycardic, currently was placed on BiPAP. BiPAP setting is 16/8 with FiO2 of 100% and has to be placed or strains. Be cause of her cell phone staff. Further information is limited Labs reviewed showing leukocytosis of 206, hemoglobin 12, platelet count 186 Mainly he has increasing lymphocytes at 192k, BMP and liver enzymes were unremarkable PH is low at 7.3 PCO2 is elevated 54 and pO2 was low 47 ProBNP is mildly elevated 1650 Troponin is negative Chest x-ray showing worsening right lung opacification involving most of the whole right lung CTA of the chest was negative for pulmonary embolism with large right pleural effusion associated with ascending aorta about 4.3 cm EKG showing A. fib with conduction delay/L Duarte versus right bundle branch block 08/12. Patient seen and examined. Continues to be on BiPAP. Family at the bedside. Discussed with detailed with them the patient's poor prognosis, family would like to transition to hospice once patient's other son comes up. Patient was later discharged to inpatient hospice PHYSICAL EXAMINATION: GENERAL: The patient is confused and agitated, ill-looking currently on BiPAP HEENT: Pupils are round and equally reacting to light. EOMI. No scleral icterus. No conjunctival pallor. Normocephalic, atraumatic. No pharyngeal erythema. No thyromegaly. CARDIOVASCULAR: S1 and S2 present. No murmurs, rubs, or gallops. PULMONARY: Diminished breath sounds at the bases bilaterally ABDOMEN: Soft, nontender, nondistended, normoactive bowel sounds. No palpable organomegaly. MUSCULOSKELETAL: No joint swelling or deformity. EXTREMITIES: No cyanosis, clubbing, or pedal edema. NEUROLOGICAL: Confused, agitated SKIN: No rashes. Dictation was produced using [employer] dictation software. please excuse any grammatical, word or spelling errors. Patient Condition at Discharge: Poor Plan - Discharge Summary Discharge Rx Participant: Yes New Discharge Prescriptions: No Action dilTIAZem HCL [Cardizem CD] 120 mg PO DAILY lisinopriL [Prinivil] 20 mg PO DAILY Albuterol Sulfate [Albuterol Sulfate Hfa] 2 puff PO RT-Q6H PRN PRN Reason: Wheezing Aspirin EC [Ecotrin Low Dose] 81 mg PO DAILY Furosemide [Lasix] 20 mg PO DAILY carvediloL [Coreg] 6.25 mg PO BID metFORMIN HCL 1,000 mg PO BID-W/MEALS Insulin Regular, Human [NovoLIN R] See Protocol SQ ACHS Rivaroxaban [Xarelto] 20 mg PO DIRECTED Discharge Medication List Albuterol Sulfate [Albuterol Sulfate Hfa] 2 puff PO RT-Q6H PRN 08/10/23 [History] Aspirin EC [Ecotrin Low Dose] 81 mg PO DAILY 08/10/23 [History] Furosemide [Lasix] 20 mg PO DAILY 08/10/23 [History] Insulin Regular, Human [NovoLIN R] See Protocol SQ ACHS 08/10/23 [History] Rivaroxaban [Xarelto] 20 mg PO DIRECTED 08/10/23 [History] carvediloL [Coreg] 6.25 mg PO BID 08/10/23 [History] dilTIAZem HCL [Cardizem CD] 120 mg PO DAILY 08/10/23 [History] lisinopriL [Prinivil] 20 mg PO DAILY 08/10/23 [History] metFORMIN HCL 1,000 mg PO BID-W/MEALS 08/10/23 [History] Follow up Appointment(s)/Referral(s): Nonstaff,Physician [Primary Care Provider] - 1-2 days [facility]
== END 2023-08-12 16:09 | disposition hospice, inpatient (51) | DRG 189 ==
LOC: EC 13:20 → 3SCARD 17:26 → 2SICU 08-11 06:36
PROVIDERS: ADMIT Hospitalist; ATTEND Hospitalist
DX: J96.01 Acute respiratory failure with hypoxia (principal); G92.8 Other toxic encephalopathy; U07.1 COVID-19; J12.82 Pneumonia due to coronavirus disease 2019; I50.23 Acute on chronic systolic (congestive) heart failure; C91.10 Chronic lymphocytic leukemia of B-cell type not having achieved remission; I48.21 Permanent atrial fibrillation; I11.0 Hypertensive heart disease with heart failure; J96.02 Acute respiratory failure with hypercapnia; E78.5 Hyperlipidemia, unspecified; Z79.01 Long term (current) use of anticoagulants; Z79.890 Hormone replacement therapy; Z51.5 Encounter for palliative care; Z66 Do not resuscitate; Z79.82 Long term (current) use of aspirin; Z79.4 Long term (current) use of insulin; Z79.84 Long term (current) use of oral hypoglycemic drugs; Z79.899 Other long term (current) drug therapy; Z95.5 Presence of coronary angioplasty implant and graft; I71.20 Thoracic aortic aneurysm, without rupture, unspecified; I45.10 Unspecified right bundle-branch block
CPT/HCPCS: 36415; 36600; 71045; 71046; 71275; 76604; 80048; 80053; 80076; 82805; 83036; 83605; 83615; 83735; 83880; 84145; 84484; 85025; 85379; 85610; 85730; 86140; 87040; 87636; 93005; 93306; 94640; 94660; 96361; 96365; 96366; 96368; 96372; 96375; 96376; 99291

== ENCOUNTER 2023-08-11 14:06 | Inpatient (IN) | payer MEDICAID ==
[2023-08-11] MEDS ORDERED: ONDANSETRON 4 MG/2 ML VIAL IVP PRN (14:20)
[2023-08-11] MEDS ORDERED: ACETAMINOPHEN SUPPOSITORY 650 MG SUPP RECTAL PRN (14:20)
[2023-08-11] MEDS ORDERED: ATROPINE OPHTH SOLN 1% 5ML BTL SUBLINGUAL PRN (14:20)
[2023-08-11] MEDS ORDERED: LORazepam 2 MG/ML INJ IV PRN (14:20)
[2023-08-11] MEDS ORDERED: MORPHINE SULFATE 2 MG/ML SYRINGE IV PRN (14:20)
[2023-08-11] MEDS ORDERED: SCOPOLAMINE 1 MG/72 HR PATCH TRANSDERM SCH (14:30)
[2023-08-12] MEDS ORDERED: HALOPERIDOL LACTATE 5 MG/ML 1 ML VIAL IM PRN (16:01)
[2023-08-12] MEDS ORDERED: GLYCOPYRROLATE 0.2 MG/ML 2 ML VIAL IVP PRN (16:01)
[2023-08-12] MEDS: MORPHINE SULFATE (100 MG/2 ML) 100 MG in SODIUM CHLORIDE 0.9% 100 ML IV SCH ×2 (16:38→17:09)
[2023-08-12 21:34] VITALS: RESP 6; TEMP 97.1
== END 2023-08-13 01:56 | disposition expired | DRG 951 ==
LOC: 2SICU 08-12 16:09
PROVIDERS: ADMIT Hospitalist; ATTEND Hospitalist
DX: Z51.5 Encounter for palliative care (principal); U07.1 COVID-19; G92.8 Other toxic encephalopathy; J96.02 Acute respiratory failure with hypercapnia; J12.82 Pneumonia due to coronavirus disease 2019; I50.22 Chronic systolic (congestive) heart failure; C91.10 Chronic lymphocytic leukemia of B-cell type not having achieved remission; I11.0 Hypertensive heart disease with heart failure; Z66 Do not resuscitate